=== PATIENT | female | born 1960 | race Caucasian/White ===

== ENCOUNTER 2023-06-08 18:34 | Inpatient (IN) | payer OTHER, SELFPAY ==
[2023-06-08] VITALS (8 sets, daily range): BP systolic 96–114; BP diastolic 58–73; BMI 20.6; BMI 19.8
[2023-06-08 15:22] LABS: COVID-19 Antigen Negative (Negative)
--- NOTE | 2023-06-08 15:58 | ED.GENMED ---
History of Present Illness
General
Chief Complaint: Fever
Source: patient
Exam Limitations: none
Time Seen by Provider: 06/08/23 15:31
Travel History
Have you had any contact with someone who has COVID-19?: Yes
Comment: fever
Do you have any symptoms of coronavirus? Fever > 100 degrees, chills, cough, shortness of breath, sore throat, loss of taste or smell, muscle aches, or headache?: Yes
Symptoms:: fever
History of Present Illness
History of Present Illness:
62-year-old female with recent diagnosis of microscopic colitis presents with persistent abdominal pain loose stools fever and fatigue. She notes a 15 pound weight loss over the past 4 months. She denies chest pain. She was seen at another ""hospital's emergency room several days ago was given fluids and discharged. She had a colonoscopy through [facility] on May 17 of this year which demonstrated the microscopic colitis. She has been prescribed budesonide, Bentyl
however despite these interventions her symptoms are worsening. Today she had a temperature of 103.3. She denies chest pain. She notes fatigue but no shortness of breath.
Past History
Past History
ED Past Medical History: COPD (Slight), NIDDM and Other (Migraines)
ED Past Surgical History: Other (Hemorrhoids)
Social History
Tobacco: Smoker
Alcohol: Occasional
Personal: Single
Living: alone
Phy Exam
Physical Exam
Physical Exam:
General: Slightly ill-appearing female no acute respiratory distress
HEENT: Normocephalic atraumatic
Heart: Regular rate and rhythm no murmurs
Lungs: Clear to auscultation bilaterally no wheezing
Abdomen: Soft mildly diffusely tender no guarding nondistended normal bowel sounds no costovertebral angle tenderness
Extremities: No cyanosis
Skin: Warm no rashes
Course
Orders/Labs/Results
Orders:
Orders
06/08/23 14:43
COVID-19 Antigen Urgent
Source: Nasal Swab
Influenza A+B Rapid Molecular Urgent
WILFRED Source: Nasal Swab
Specimen Description:
06/08/23 15:56
0.9% Sodium Chloride 1000 ml [Nss] 1,000 ml IV BOLUS
06/08/23 15:57
Acetaminophen [Tylenol] 650 mg PO NOW STA
06/08/23 16:00
Blood Culture Q30M
WILFRED Source: Blood/Venous
Specimen Description:
06/08/23 16:10
CRP [C-Reactive Protein] Urgent
Calprotectin, Fecal [S] Urgent
Date Specimen was Collected: 06/08/23
Time Specimen was Collected: 16:02
Comment: ADD ON
Complete Blood Count/With Diff Urgent
Comprehensive Metabolic Panel Urgent
Erythrocyte Sed Rate Urgent
Comment: ADD ON
Lactic Acid Q4H
Comment: CANCEL 2nd LACTIC ACID IF 1st LACTIC ACID IS LESS THAN 2
Lipase Urgent
Norovirus by PCR Urgent
WILFRED Source: Feces/Stool
Specimen Description:
Date Specimen was Collected: 06/08/23
Time Specimen was Collected: 16:02
Ova & Parasites Giardia/Crypto AG [Giardia/Cryptosporidium Ag] Urgent
WILFRED Source: Feces/Stool
Specimen Description:
Date Specimen was Collected: 06/08/23
Time Specimen was Collected: 16:02
STOOL [C difficile Antigen & Toxins] Urgent
WILFRED Source: Feces/Stool
Specimen Description:
Date Specimen was Collected: 06/08/23
Time Specimen was Collected: 16:02
Stool Culture Urgent
WILFRED Source: Feces/Stool
Specimen Description:
Date Specimen was Collected: 06/08/23
Time Specimen was Collected: 16:02
06/08/23 16:17
Calprotectin, Fecal [S] Urgent
06/08/23 16:18
Urinalysis Reflex To Culture Urgent
06/08/23 16:25
Add On- LAB Urgent
Tests Added?: sed rate
06/08/23 16:26
Add On- LAB Urgent
Tests Added?: calprotectin, fecal (s)
06/08/23 16:30
Blood Culture Q30M
WILFRED Source: Blood/Venous
Specimen Description:
Abnormal Lab Results
06/08/23
16:10
Absolute Neuts (auto) 7.7 H 10^3/uL
(1.4-6.5)
Absolute Lymphs (auto) 1.1 L 10^3/uL
(1.2-3.4)
Absolute Monos (auto) 1.2 H 10^3/uL
(0.1-0.6)
Neutrophils % 76.2 H %
(42.2-75.2)
Lymphocytes % 11.3 L %
(20.5-51.1)
Monocytes % 11.8 H %
(1.7-9.3)
Sodium 133 L mmol/L
(135-145)
Glucose 111 H mg/dl
(70-99)
C-Reactive Protein 24.50 H mg/L
(0.0-10.00)
06/08/23 16:10
06/08/23 16:10
Vital Signs
Initial and Last Documented VS:
Initial Vital Signs
Temp Pulse Resp BP Pulse Ox
100.8 F H 98 16 109/73 100
06/08/23 14:34 06/08/23 14:34 06/08/23 14:34 06/08/23 14:34 06/08/23 14:34
Last Documented Vital Signs
Temp Pulse Resp BP Pulse Ox
100.7 F H 98 16 109/73 100
06/08/23 15:56 06/08/23 14:34 06/08/23 14:34 06/08/23 14:34 06/08/23 14:34
MDM/Problems Addressed
Differential Diagnosis Includes:
Fever with abdominal pain and recent diagnosis of microscopic colitis. COVID and flu test were performed through triage which were negative. Will check labs including lactic acid and blood cultures. I reviewed the CT report from 3 nights ago
which demonstrated no acute finding. This was a CT scan of the abdomen pelvis with oral and IV contrast at [facility]. Consider flare of colitis. She has persistent fever. Blood cultures will be ordered. She is losing weight and dry
currently. Patient is failing outpatient treatment will likely benefit from admission to hospital
*Critical Care Note
Total Time (30-74mins, 75-104mins- exclusive of procedures): Not Applicable
Update Note
Update Note:
Labs reviewed. Discussed findings with GI. GI recommended further stool studies. Will hydrate. Will keep in hospital secondary to failure of outpatient treatment. GI to see in the morning. Hospitalist made aware
ED Attending Note
-
Portions of this chart may have been created with voice recognition software.� Occasional wrong word or��sound alike� substitutions may have occurred due to the inherent limitations of voice recognition software.
Discharge Plan
Departure
Patient Disposition: Admit
Date of Disposition: 06/08/23
Time of Disposition: 17:07
Admit to: Telemetry
Presentation/result/management discussed w/ accepting MD/DO: Hospitalist
Discharge Problem:
Fever
Prescriptions:
No Action
pantoprazole 40 MG tablet,delayed release (DR/EC)
40 mg PO DAILY Qty: 10 0RF
Referrals:
NONE,* [Family Provider] -
Interventions
Interventions:
*Risk Screen - Suicide Last Done: 06/08/23 14:34
*General Assessment Last Done: 06/08/23 15:30
*Neglect/Abuse Screening Last Done: 06/08/23 14:34
*ED COVID-19 Vaccine History Last Done: 06/08/23 15:30
ED- Neurological Assessment Last Done: 06/08/23 15:30
ED-Skin Assessment Last Done: 06/08/23 15:30
[2023-06-08] MEDS: TYLENOL 650 MG PO (16:04)
[2023-06-08] MEDS: NSS 1000 IV (16:18)
[2023-06-08 16:22] LABS: % Basophils 0.2 % (0-2); % Eosinophils 0.1 % (0-6); % Immature Granulocytes 0.4 % (0-0.5); % Lymphocytes 11.3 % (20.5-51.1); % Monocytes 11.8 % (1.7-9.3); % Neutrophils 76.2 % (42.2-75.2); Absolute Lymphocytes 1.1 10^3/uL (1.2-3.4); Absolute Monocytes 1.2 10^3/uL (0.1-0.6); Absolute Neutrophils 7.7 10^3/uL (1.4-6.5); Hematocrit 39.9 % (37.0-47.0); Hemoglobin 14.1 g/dL (12.0-16.0); Mean Corp Hgb Conc. 35.3 g/dL (33.0-37.0); Mean Corpuscular Hgb 30.2 pg (27.0-31.0); Mean Corpuscular Volume 85.4 fL (81.0-99.0); Mean Platelet Volume 8.8 fL (7.4-10.4); Nucleated Red Blood Cells % 0 %; Platelet Count 341 10^3/uL (130-400); Red Blood Cell Count 4.67 10^6/uL (4.20-5.40); Red Cell Dist. Width 12.6 % (11.5-14.5)
[2023-06-08 16:36] LABS: Lactic Acid 1.3 mmol/L (0.7-2.0)
[2023-06-08 16:38] LABS: ALT (SGPT) 14 U/L (0-35); AST (SGOT) 24 U/L (14-36); Albumin 3.7 g/dl (3.5-5.0); Alkaline Phosphatase 73 U/L (38-126); Blood Urea Nitrogen 9 mg/dl (7-17); Calcium 8.8 mg/dl (8.4-10.2); Carbon Dioxide 23 mmol/L (22-30); Chloride 103 mmol/L (98-107); Estimated Creatinine Clearance 61 ml/min; Glucose 111 mg/dl (70-99); Lipase 169 U/L (23-300); Potassium 3.6 mmol/L (3.5-5.1); Sodium 133 mmol/L (135-145); Total Bilirubin 0.4 mg/dl (0.2-1.3); Total Protein 6.5 g/dl (6.3-8.2); eGFR > 60.00
[2023-06-08 17:12] LABS: Erythrocyte Sed Rate 25 mm/hour (0-20)
--- NOTE | 2023-06-08 17:45 | HPS.HSE ---
Addendum entered and electronically signed by Marielos Sainz MD 06/08/23 18:00:
I saw and examined the patient.
The LIGHT RAIL SIGNAL TECHNICIAN's note was reviewed and I agree with the note.
Comment:
62-year-old female, recently diagnosed with microscopic colitis and started with budesonide and as needed Bentyl, ?resolved diabetes mellitus; presented with fever, persistent abdominal pain with chronic diarrhea.
She had a colonoscopy at [facility] earlier this month with biopsy that showed microscopic colitis. She reported weight loss of 15lbs over the past 6 months.�
A/P:
# Fever / Abdominal Pain / Diarrhea, possibly infectious colitis vs acute flare of IBD
Attempt to obtain records of recent CT scan and colonoscopy
Consult GI
Check blood cultures and stool studies
Start empiric Zosyn
Continue budesonide
# ?Resolved Diabetes Mellitus, Type II
Per patient, she no longer requires meds following weight loss
Monitor sugars and continue coverage insulin
Check A1C
# Anxiety/Depression
Continue Lexapro and Ativan prn as prior to admission
# Pulmonary Nodules
Patient will need follow-up with pulmonary as outpatient
# Tobacco Use Disorder
Encourage smoking cessation
Continue nicotine patch
DVT proph: SCDs
Code Status: Full Code
Original Note:
Family Physician
-
Family Physician: * NONE
Chief Complaint
-
Abdominal Pain, Diarrhea and Fever
History of Present Illness
Patient is a 62 y/o female past medical history of diabetes mellitus who presents with fever, diarrhea and abdominal pain. She admits to abdominal pain and diarrhea for the past two months. She had a colonoscopy at [facility] earlier this month. Biopsy
showed evidence of microscopic colitis and she was started on budesonide earlier this week. Patient states during this time she has been experiencing low grades around 99-100F, but today had a fever of 103F which prompted her to come to the
emergency department for evaluation. She reports about 6-8 episodes of non-bloody diarrhea per day. She reports weight loss of 15lbs over the past 6 months. She denies nausea or vomiting.
Medical History
Past Medical History
Past Medical History: Reports Other
Additional Past Medical History:
Diabetes Mellitus, Type II
Anxiety/Depression
Past Surgical History: Reports None
Social History
Tobacco: Smoker (1/2 ppd)
Alcohol: None
Family History
Family History: Not pertinent
Allergies / Home Medications
Allergies reflects when Allergies were last updated in [employer].
Home Medications with original date entered in [facility]
Allergy/Medication List:
Allergies
Allergy/AdvReac Type Severity Reaction Status Date / Time
NKA - No Known Allergies Allergy Unknown Uncoded 11/16/19 12:34
Home Medications
acetaminophen 325 mg tablet (Tylenol) 650 mg PO Q6HPRN PRN mild pain 06/08/23
budesonide 3 mg capsule,delayed,extended release 9 mg PO DAILY 06/08/23
dicyclomine 20 mg tablet 20 mg PO TIDPRN PRN spasms 06/08/23
escitalopram oxalate 10 mg tablet (Lexapro) 10 mg PO QPM 06/08/23
lorazepam 1 mg tablet 1 mg PO HSPRN PRN anxiety 06/08/23
Review of Systems
-
A 12 point ROS was completed and negative except as noted: Yes
Constitutional: Reports Fever
Respiratory: Denies Cough or Trouble Breathing
Cardiac: Denies Chest Pain or Palpitations
Abdomen/GI: Reports See HPI
Physical Exam
Vital Signs
Vital Signs
Temp Pulse Resp BP Pulse Ox
100.7 F H 91 24 107/71 93
06/08/23 15:56 06/08/23 17:00 06/08/23 17:00 06/08/23 17:00 06/08/23 17:00
Physical Exam
General: Comfortable and Conversant
HEENT: Anicteric and Moist mucous membranes
Respiratory: Clear and Non Labored Respirations
Cardiac: S1/S2 and Regular Rhythm; No Tachycardia
GI: Soft, Tender (Mild throughout without rebound or guarding) and Other (Hyperactive bowel sounds throughout)
Rectal: Deferred by Provider
Musculoskeletal: No Clubbing, No Cyanosis and No Edema
Skin: Warm and Dry
Neuro: Awake, Alert, Oriented and Nonfocal/grossly intact
Psych: Calm
Laboratory Results
-
06/08/23 16:10
06/08/23 16:10
Laboratory Results
Lactic Acid Cancelled 06/08/23 20:00
Total Bilirubin 0.4 mg/dl (0.2-1.3) 06/08/23 16:10
AST 24 U/L (14-36) 06/08/23 16:10
ALT 14 U/L (0-35) 06/08/23 16:10
Alkaline Phosphatase 73 U/L (38-126) 06/08/23 16:10
Lipase 169 U/L (23-300) 06/08/23 16:10
Data Reviewed
-
Lab Data: Labs Reviewed by me
Old Records: Requested
Impression/Plan
-
Fever / Abdominal Pain / Diarrhea, possibly infectious colitis vs acute flare of IBD
-Attempt to obtain records of recent CT scan and colonoscopy
-Consult GI
-Check blood cultures and stool studies
-Start empiric Zosyn
-Continue budesonide
Diabetes Mellitus, Type II
-Patient no longer requires meds following weight loss
-Monitor sugars and continue coverage insulin
Anxiety/Depression
-Continue Lexapro and Ativan prn as prior to admission
Pulmonary Nodules
-Patient will need follow-up with pulmonary as outpatient
Tobacco Use Disorder
-Encourage smoking cessation
-Continue nicotine patch
DVT proph: SCDs
Code Status: Full Code
[2023-06-08] MEDS: ZOSYN 50 IV (18:07)
[2023-06-08] MEDS: KCL 1005 MEQ IV (18:18)
[2023-06-08] MEDS: LEXAPRO 10 MG PO (21:03)
[2023-06-08] MEDS: BENTYL 20 MG PO (21:06)
[2023-06-08 23:20] LABS: Glucose - Point of Care 106 mg/dl (70-99)
[2023-06-08] MEDS: ZOFRAN 4 MG IV (23:36)
[2023-06-08] MEDS: TYLENOL/FEVERALL 650 MG RECTAL (23:52)
[2023-06-09] MEDS: ZOSYN 50 IV ×5 (00:32→23:15)
[2023-06-09] MEDS: OFIRMEV 100 IV (03:59)
[2023-06-09] MEDS: KCL 1005 MEQ IV ×3 (04:39→23:15)
--- NOTE | 2023-06-09 05:25 | W.PN.UPDATE ---
Update Note
Progress Note Update
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 At 0215, continued to be 102.5 (orally) rectally 103, likely due to poor Rectal Tylenol absorption. Cooling blanket ordered, 126/75 82 bpm 99% on RA, Also ordered
IV Ofirmev, discussed with Pharmacist.
at 0600 Temp of 100.0 noted. Patient is stable at present. Micro Blood culture and stool culture still pending. On Zosyn and Budesonide.
[2023-06-09 05:37] VITALS: BP 126/75
[2023-06-09 05:55] LABS: Glucose - Point of Care 102 mg/dl (70-99)
[2023-06-09 07:00] VITALS: BP 96/69
[2023-06-09 07:06] LABS: Hematocrit 36.3 % (37.0-47.0); Hemoglobin 12.5 g/dL (12.0-16.0); Mean Corp Hgb Conc. 34.4 g/dL (33.0-37.0); Mean Corpuscular Hgb 30.1 pg (27.0-31.0); Mean Corpuscular Volume 87.5 fL (81.0-99.0); Mean Platelet Volume 9.2 fL (7.4-10.4); Platelet Count 283 10^3/uL (130-400); Red Blood Cell Count 4.15 10^6/uL (4.20-5.40); Red Cell Dist. Width 12.6 % (11.5-14.5); White Blood Cell Count 9.6 10^3/uL (4.8-10.8)
[2023-06-09 07:38] LABS: Blood Urea Nitrogen 8 mg/dl (7-17); Calcium 8.2 mg/dl (8.4-10.2); Carbon Dioxide 25 mmol/L (22-30); Chloride 101 mmol/L (98-107); Estimated Creatinine Clearance 59 ml/min; Glucose 120 mg/dl (70-99); Magnesium 1.9 mg/dl (1.6-2.3); Potassium 3.5 mmol/L (3.5-5.1); Sodium 135 mmol/L (135-145); eGFR > 60.00
[2023-06-09] MEDS: ENTOCORT EC 9 MG PO (08:55)
[2023-06-09 09:04] LABS: Glycohemoglobin (HgbA1c) 6.2 % (4.0-5.6)
[2023-06-09 11:20] VITALS: BMI 19.4
[2023-06-09 12:12] LABS: Glucose - Point of Care 117 mg/dl (70-99)
--- NOTE | 2023-06-09 12:40 | CON.GI ---
Consultation
-
Date/Time Consultation Requested: 06/08/2023
Date/Time Consultation Performed: 06/09/2023
Requesting Provider: ER
Performing Provider: Dr. Henriquez
Reason for Consultation: Fever diarrhea abdominal pain
Medical History
Chief Complaint / HPI
Chief Complaint: Fever, diarrhea and abdominal pain
History of Present Illness:
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
budesonide 4 days ago and 15 pound weight loss since modifying her diet since the diarrhea started.
Patient states her symptoms started in November when she went from having normal bowel movements to having a few soft stools which later turned more loose than in end of April that became watery and she was moving up to 10 times a day even nocturnal
symptoms. Even had accidents in stores. Describes it as painless but urgent and worse after eating. Because it would be worse after eating she would not eat much and stuck to very plain foods. She is lost 15 pounds in the last few months. Prior
to all this happening she was traveling to [facility], a [facility]. No one around her has anything similar. She did change around some antidepressants and recently started taking Lexapro. She is still a smoker.
She had a colonoscopy with Dr. Alfred on 05/23/2023 where she had a normal colon but biopsies were positive for microscopic colitis. She was not aware of this until just last week. She ended up in the emergency room on 06/05/2023 because of her
fever and watery diarrhea where she had a CT scan with IV and oral contrast. I reviewed the report which was normal. At that time they called her GI doctor who then prescribed the budesonide. She has not been taking any Imodium because of fear of
her hemorrhoids from the past. She was taking Pepto-Bismol which did note some improvement in the stools. She is not on any PPIs and does not take any significant NSAIDs.
Past Medical History
Past Medical History: Other (Type 2 diabetes, off medications because of weight loss, anxiety depression, tobacco abuse with mild COPD, migraines)
Social History
Tobacco: Smoker
Alcohol: Occasional
Personal: Single
Living: Alone
Family History
Family History: Other (Denies any GI illnesses. No celiac or inflammatory bowel disease)
Allergies / Home Medications
Allergy/AdvReac Type Severity Reaction Status Date / Time
NKA - No Known Allergies Allergy Unknown Uncoded 11/16/19 12:34
Medication Instructions Recorded
acetaminophen 325 mg tablet 650 mg PO Q6HPRN PRN mild pain 06/08/23
(Tylenol)
budesonide 3 mg 9 mg PO DAILY INFLAMMATION 06/08/23
capsule,delayed,extended release
dicyclomine 20 mg tablet 20 mg PO TIDPRN PRN spasms 06/08/23
escitalopram oxalate 10 mg tablet 10 mg PO QPM Mental Health/Anxiety 06/08/23
(Lexapro)
lorazepam 1 mg tablet 1 mg PO HSPRN PRN anxiety 06/08/23
Review of Systems
-
History Source: Patient
All other systems: A 12 pt ROS was Negative except as stated above in HPI
Vital Signs
Temp Pulse Resp BP Pulse Ox
98.1 F 77 20 96/69 100
06/09/23 07:00 06/09/23 07:00 06/09/23 07:00 06/09/23 07:00 06/09/23 07:00
Physical Exam
Exam
General: Well Developed, Well Nourished and No Apparent Distress
HEENT: Anicteric
Respiratory: Clear
Cardiac: S1/S2
GI: Soft, Non Tender and Non Distended
Neuro: AO x 3
Psych: Calm
Results
WBC 9.6 10^3/uL (4.8-10.8) 06/09/23 06:31
Hgb 12.5 g/dL (12.0-16.0) 06/09/23 06:31
Hct 36.3 % (37.0-47.0) L 06/09/23 06:31
MCV 87.5 fL (81.0-99.0) 06/09/23 06:31
Plt Count 283 10^3/uL (130-400) 06/09/23 06:31
Absolute Neuts (auto) 7.7 10^3/uL (1.4-6.5) H 06/08/23 16:10
Sodium 135 mmol/L (135-145) 06/09/23 06:31
Potassium 3.5 mmol/L (3.5-5.1) 06/09/23 06:31
Chloride 101 mmol/L (98-107) 06/09/23 06:31
Carbon Dioxide 25 mmol/L (22-30) 06/09/23 06:31
BUN 8 mg/dl (7-17) 06/09/23 06:31
Creatinine 0.9 mg/dL (0.6-1.0) 06/09/23 06:31
Calcium 8.2 mg/dl (8.4-10.2) L 06/09/23 06:31
Total Bilirubin 0.4 mg/dl (0.2-1.3) 06/08/23 16:10
AST 24 U/L (14-36) 06/08/23 16:10
ALT 14 U/L (0-35) 06/08/23 16:10
Alkaline Phosphatase 73 U/L (38-126) 06/08/23 16:10
Lipase 169 U/L (23-300) 06/08/23 16:10
Diagnostic Image Results:
Prior GI Procedures:
EGD:
Colonoscopy: 05/23/[address] Alfred on 05/23/2023 where she had a normal colon but biopsies were positive for microscopic colitis -I reviewed the report. I do not have the path report but she states it was collagenous colitis
Assessment / Plan
-
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
colitis who started budesonide 4 days ago and 15 pound weight loss since modifying her diet since the diarrhea started.
# Diarrhea -watery, frequent and urgent without significant abdominal pain
--- Consistent with microscopic colitis as diagnosed on 05/23/2023 during her colonoscopy. Patient was not aware of that diagnosis until last week and was started on budesonide 9 mg and continue
--- Okay to use Imodium and Pepto-Bismol in the setting of collagenous colitis - i'll start imodium
-- can also use bile acid binder if needed
--Patient has to stop smoking as this is often not controllable with continued tobacco use
--,--- microscopic colitis doesn't cause fever or abdominal pain - only diarrhea
--- Stool studies so far negative for C. difficile, norovirus, Cryptosporidium and Giardia. Stool culture pending, blood cultures pending, fecal leukocytes pending, elevated CRP
# Weight loss -patient has a good appetite but she is nervous about eating because of the diarrhea
# Fever -patient states it has been 99-100 for over a month but more recently went to 103 yesterday
--- She has no signs of infection denies any cough, pain, urinary symptoms, rash
--- Microscopic colitis does not cause fever and she has no signs of inflammatory bowel disease on imaging or exam
--- Patient was told by her PCP to see hematology/oncology for FUO
-- discussed with DR Sainz
Data Reviewed
-
CT Scan: Report Reviewed by me
Old Records: Reviewed
Time spent with patient (in minutes): 50
-
-
Thank you for consultation and allowing me to participate in the patient's care. Please call the flight controls engineer GI physician during the after hours with any questions or concerns.
--- NOTE | 2023-06-09 13:10 | W.PN.HOSP.TC ---
Today's Communication/Plan
-
see AP
Assessment / Plan
Assessment / Plan
62-year-old female, recently diagnosed with microscopic colitis and started with budesonide and as needed Bentyl, ?resolved diabetes mellitus; presented with fever, persistent abdominal pain with chronic diarrhea.
She had a colonoscopy at [facility] earlier this month with biopsy that showed microscopic colitis. She reported weight loss of 15lbs over the past 6 months.�
A/P:
# Fever / Abdominal Pain / Diarrhea, possibly infectious colitis vs acute flare of IBD
Attempt to obtain records of recent CT scan and colonoscopy
Consult GI
Check blood cultures and stool studies
Cont empiric Zosyn
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
# ?Resolved Diabetes Mellitus Type II
Per patient, she no longer requires meds following weight loss
A1C 6.2%
# Anxiety/Depression
Continue Lexapro and Ativan prn as prior to admission
# Pulmonary Nodules
Patient will need follow-up with pulmonary as outpatient
# Tobacco Use Disorder
Encourage smoking cessation
Continue nicotine patch
DVT proph: SCDs
Code Status: Full Code
Anticipated Discharge: 24 - 48 hours
Subjective/Interval History
-
Date of Service: June 09, 2023
Objective Data
-
Labs:
Laboratory Results
06/09/23
06:31
WBC 9.6
Hgb 12.5
Hct 36.3 L
Plt Count 283
Sodium 135
Potassium 3.5
Chloride 101
Carbon Dioxide 25
BUN 8
Creatinine 0.9
Glucose 120 H
Calcium 8.2 L
Vital Signs:
Vital Signs
Temp Pulse Resp BP Pulse Ox
36.7 C 77 20 96/69 100
06/09/23 07:00 06/09/23 07:00 06/09/23 07:00 06/09/23 07:00 06/09/23 07:00
Review of Systems
-
Abdomen/GI: Reports Abdominal Pain and Diarrhea
Physical Exam
-
General: Well Developed, Well Nourished, No Apparent Distress, Comfortable and Conversant; Negative Respiratory Distress
HEENT: Normocephalic, Atraumatic, Nose Appears Normal and Ears Appear Normal; Negative Oxygen
Respiratory: Clear to Auscultation and Non Labored Respirations; Negative Accessory Resp Muscle Use
Cardiac: Regular Rhythm and S1/S2
GI: Soft, Nontender, Nondistended and Normal Bowel Sounds
Skin: Warm and Dry
Neuro: Awake, Alert, Oriented, AO x 3 and Nonfocal/Grossly Intact
Psych: Calm and Intact Judgement/Insight
Data Reviewed
-
Labs: Labs Reviewed by me
[2023-06-09 15:00] VITALS: BP 105/63
[2023-06-09] MEDS: IMODIUM 2 MG PO ×2 (15:08→19:30)
[2023-06-09 15:33] VITALS: BMI 19.4
[2023-06-09] MEDS: LEXAPRO 10 MG PO (17:25)
[2023-06-09 17:37] LABS: Glucose - Point of Care 158 mg/dl (70-99)
[2023-06-10 00:10] LABS: Glucose - Point of Care 85 mg/dl (70-99)
[2023-06-10 00:24] VITALS: BP 108/69
[2023-06-10] MEDS: ZOSYN 50 IV (05:02)
[2023-06-10 05:59] LABS: % Basophils 0.5 % (0-2); % Eosinophils 0.2 % (0-6); % Immature Granulocytes 0.3 % (0-0.5); Absolute Lymphocytes 1.9 10^3/uL (1.2-3.4); Absolute Monocytes 0.9 10^3/uL (0.1-0.6); Absolute Neutrophils 3.3 10^3/uL (1.4-6.5); Hematocrit 32.9 % (37.0-47.0); Hemoglobin 11.4 g/dL (12.0-16.0); Mean Corp Hgb Conc. 34.7 g/dL (33.0-37.0); Mean Corpuscular Hgb 29.7 pg (27.0-31.0); Mean Corpuscular Volume 85.7 fL (81.0-99.0); Mean Platelet Volume 9.3 fL (7.4-10.4); Nucleated Red Blood Cells % 0 %; Platelet Count 249 10^3/uL (130-400); Red Blood Cell Count 3.84 10^6/uL (4.20-5.40); Red Cell Dist. Width 12.8 % (11.5-14.5); White Blood Cell Count 6.1 10^3/uL (4.8-10.8)
[2023-06-10 06:00] VITALS: BMI 19.6
[2023-06-10 06:28] LABS: Blood Urea Nitrogen 6 mg/dl (7-17); Calcium 7.9 mg/dl (8.4-10.2); Carbon Dioxide 25 mmol/L (22-30); Chloride 105 mmol/L (98-107); Estimated Creatinine Clearance 65 ml/min; Glucose 92 mg/dl (70-99); Potassium 3.4 mmol/L (3.5-5.1); Sodium 133 mmol/L (135-145); eGFR > 60.00
[2023-06-10 07:00] VITALS: BP 95/69
[2023-06-10] MEDS: ENTOCORT EC 9 MG PO (07:13)
[2023-06-10] MEDS: IMODIUM 2 MG PO ×4 (07:19→23:40)
[2023-06-10] MEDS: KCL 40 MEQ PO (07:19)
--- NOTE | 2023-06-10 07:54 | CON.ONC ---
Impression
Impression
Fever
Unintentional weight loss
hx pulmonary nodules
Ovarian cyst
Diarrhea with microscopic colitis on colonoscopy
COPD
Anxiety/depression
Plan
Plan
Diagnostic CT chest with plan for PET scan as outpt.
Eval for carcinoid syndrome as possible source of diarrhea: serum chromogranin, 24-hr urine for 5-HIAA.
CBC unremarkable other than elevated WBC.
No evidence of maligancy on exam, scans, CBC.
Consider infectious disease consultation if not already done.
Thank you for consult, will follow along with you.
Patient History
History of Present Illness
62-year-old woman with history of COPD, anxiety/depression and family history of lung cancer in sister. She has pulmonary nodules which have been followed by annual low-dose screening CT scan. Over the last 6 months or so, she has been feeling ill
with daily diarrhea, sometimes explosive, sporadic abdominal pain and unintentional weight loss of about 15 pounds. She has been primarily managed at [facility] but has been frustrated about lack of progress in determining a diagnosis.
Workup for the diarrhea so far has included stool cultures which were negative for Salmonella, Shigella, Campylobacter, E. coli Shiga toxin, and C. difficile. Stool for O&P was similarly negative. A few of these tests are still pending. She
underwent a CT of the abdomen and pelvis at [place] on June 05 that showed a 4 mm nodule in right lower lobe, 2.6 cm left ovarian cyst, otherwise no evidence of acute intra-abdominal or pelvic pathology. She went on to colonoscopy which
showed microscopic colitis. She has also been having fevers. We are consulted regarding the weight loss and FUO.
Past-Medical/Surgical History
Past Medical History
Past Medical History: Other (Type 2 diabetes, off medications because of weight loss, anxiety depression, tobacco abuse with mild COPD, migraines)
Social History
Tobacco: Smoker
Alcohol: Occasional
Personal: Single
Living: Alone
Family History
Sister: lung cancer,
Other: liver cancer
Patient Medication
Medication Instructions Recorded Confirmed Last Taken Type
acetaminophen 325 mg tablet 650 mg PO Q6HPRN PRN mild pain 06/08/23 06/08/23 06/08/23 History
(Tylenol)
budesonide 3 mg 9 mg PO DAILY INFLAMMATION 06/08/23 06/08/23 06/08/23 History
capsule,delayed,extended release
dicyclomine 20 mg tablet 20 mg PO TIDPRN PRN spasms 06/08/23 06/08/23 Unknown History
escitalopram oxalate 10 mg tablet 10 mg PO QPM Mental Health/Anxiety 06/08/23 06/08/23 06/07/23 History
(Lexapro)
lorazepam 1 mg tablet 1 mg PO HSPRN PRN anxiety 06/08/23 06/08/23 Unknown History
Active Medications
Generic Name Dose Route Start Last Admin
Trade Name Freq PRN Reason Stop Dose Admin
Acetaminophen 650 mg 06/08/23 23:24
Acetaminophen 325 Mg Tablet PO 07/06/23 19:59
Q6HPRN PRN
mild pain/ fever > 100.4
Budesonide 9 mg 06/09/23 08:00 06/10/23 07:13
Budesonide 3 Mg Capsule PO 07/07/23 07:59 9 mg
DAILY DAYANNA Administration
Dextrose 12.5 grams 06/08/23 20:00
Dextrose 50% (0.5 Grams/Ml) 50 Ml Syringe IV 07/06/23 19:59
[id number] PRN
hypoglycemia
Protocol
Escitalopram Oxalate 10 mg 06/08/23 20:00 06/09/23 17:25
Escitalopram 10 Mg Tablet PO 07/06/23 19:59 10 mg
QPM DAYANNA Administration
Glucagon 1 mg 06/08/23 20:00
Glucagon 1 Mg Vial IM 07/06/23 19:59
PRN PRN
hypoglycemia
Protocol
Piperacillin Sod/Tazobactam Sod 3.375 gram in 50 mls @ 100 mls/hr 06/09/23 00:00 06/10/23 05:02
Zosyn IV 50 mls
Q6H DAYANNA Administration
Insulin Aspart 0 units 06/09/23 07:30 06/09/23 17:36
Insulin Aspart Low Resistance 300 Units/3 Ml Pen.Injctr SC 07/07/23 07:29 Not Given
AC DAYANNA
Protocol
Loperamide HCl 2 mg 06/09/23 14:49 06/10/23 07:19
Loperamide 2 Mg Capsule PO 07/07/23 14:48 2 mg
Q4HPRN PRN Administration
diarrhea
Lorazepam 1 mg 06/08/23 20:00
Lorazepam 1 Mg Tablet PO 07/06/23 19:59
HSPRN PRN
anxiety
Nicotine 7 mg 06/09/23 08:00 06/10/23 07:14
Nicotine 7 Mg Patch TRANSDERM 07/07/23 07:59 Not Given
DAILY DAYANNA
Ondansetron HCl 4 mg 06/08/23 20:00 06/08/23 23:36
Ondansetron 4 Mg/2 Ml Vial IV 07/06/23 19:59 4 mg
Q6HPRN PRN Administration
NAUSEA/VOMITING
Sodium Chloride 0 flush 06/08/23 20:00
Sodium Chloride 0.9% (Flush) Syringe IV 07/06/23 19:59
PER PROTOCOL DAYANNA
Review of Systems
-
History Source: Patient
All Other Systems: Reviewed and Negative
Constitutional: Reports Weight Loss
Physical Exam
-
General: Well Developed and Well Nourished
HEENT: Moist Mucous Membranes; Negative Jaundice
Cardiology: Normal Sinus Rhythm, S1 and S2
Pulmonary: Clear; Negative Wheezes
GI: Soft and Normal Bowel Sounds (hyperactive bowel sounds)
Musculoskeletal: No Clubbing, No Cyanosis and No Edema
Extremities: No C/C/E
Neurology: Non Focal and No Lateralizing Symptoms
Skin: Warm and Dry
Hematologic / Lymphatic: No Lymphadenopathy
Psych: Calm and Intact Judgement/Insight
Labs
Lab Results
WBC 6.1 10^3/uL (4.8-10.8) 06/10/23 05:24
RBC 3.84 10^6/uL (4.20-5.40) L 06/10/23 05:24
Hgb 11.4 g/dL (12.0-16.0) L 06/10/23 05:24
Hct 32.9 % (37.0-47.0) L 06/10/23 05:24
MCV 85.7 fL (81.0-99.0) 06/10/23 05:24
MCH 29.7 pg (27.0-31.0) 06/10/23 05:24
MCHC 34.7 g/dL (33.0-37.0) 06/10/23 05:24
RDW 12.8 % (11.5-14.5) 06/10/23 05:24
Plt Count 249 10^3/uL (130-400) 06/10/23 05:24
MPV 9.3 fL (7.4-10.4) 06/10/23 05:24
Abs Immat Gran (auto) 0.0 10^3/uL (0-0.05) 06/10/23 05:24
Absolute Neuts (auto) 3.3 10^3/uL (1.4-6.5) 06/10/23 05:24
Absolute Lymphs (auto) 1.9 10^3/uL (1.2-3.4) 06/10/23 05:24
Absolute Monos (auto) 0.9 10^3/uL (0.1-0.6) H 06/10/23 05:24
Absolute Eos (auto) 0.0 10^3/uL (0-0.7) 06/10/23 05:24
Absolute Basos (auto) 0.0 10^3/uL (0-0.2) 06/10/23 05:24
Immature Gran % 0.3 % (0-0.5) 06/10/23 05:24
Neutrophils % 54.0 % (42.2-75.2) 06/10/23 05:
Lymphocytes % 31.0 % (20.5-51.1) 06/10/23 05:24
Monocytes % 14.0 % (1.7-9.3) H 06/10/23 05:24
Eosinophils % 0.2 % (0-6) 06/10/23 05:24
Basophils % 0.5 % (0-2) 06/10/23 05:24
Creatinine 0.8 mg/dL (0.6-1.0) 06/10/23 05:24
04/25/2023: WBC 14.4, Hgb 14.1, PLT 272, ANC 9900
05/20/2023: WBC 8.4, Hgb 13.7, PLT 317
Vital Signs
Vital Signs
Temp Pulse Resp BP Pulse Ox
99.9 F 82 18 108/69 99
06/10/23 00:24 06/10/23 00:24 06/10/23 00:24 06/10/23 00:24 06/10/23 00:24
[2023-06-10 07:59] LABS: Magnesium 1.9 mg/dl (1.6-2.3)
[2023-06-10 08:21] LABS: Glucose - Point of Care 100 mg/dl (70-99)
[2023-06-10 08:56] LABS: Urine Albumin Negative (Neg - Trace); Urine Bilirubin Negative (Negative); Urine Character Clear (Clear); Urine Color Yellow; Urine Glucose Negative (Negative); Urine Ketone Negative (Negative); Urine Leukocyte Negative (Negative); Urine Nitrite Negative (Negative); Urine Occult Blood Negative (Negative); Urine Urobilinogen Negative (Neg - 1+)
--- NOTE | 2023-06-10 10:23 | W.PN.HOSP.TC ---
Today's Communication/Plan
-
see A/P
Assessment / Plan
Assessment / Plan
62-year-old female, recently diagnosed with microscopic colitis and started with budesonide and as needed Bentyl, ?resolved diabetes mellitus; presented with fever, persistent abdominal pain with chronic diarrhea.
She had a colonoscopy at [facility] earlier this month with biopsy that showed microscopic colitis. She reported weight loss of 15lbs over the past 6 months.�
A/P:
# Fever, unknown origin
recent outpt CT unrevealing
C diff/Norovirus/ stool Cryptosporidium/Giardia negative
Follow stool Cx
Blood culture negative
Cont empiric Zosyn
Appreciate heme input, diagnostic CT chest noted multiple old small pulmonary nodules, check PET scan outpt. Eval for carcinoid syndrome as possible source of diarrhea: serum chromogranin, 24-hr urine for 5-HIAA.
ID CS
# Abdominal Pain / severe persistent diarrhea, due to acute flare of IBD
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
C diff/Norovirus/ stool Cryptosporidium/Giardia negative
Follow stool Cx
GI on board
# Hypokalemia due to diarrhea
replete K
Mag WNL
# Resolved Diabetes Mellitus Type II
Per patient, she no longer requires meds following weight loss
A1C 6.2%
# Anxiety/Depression
Continue Lexapro and Ativan prn as prior to admission
# Pulmonary Nodules
diagnostic CT chest noted multiple old small pulmonary nodules
Follow-up with pulmonary as outpatient
# Tobacco Use Disorder
Encourage smoking cessation
Continue nicotine patch
DVT proph: SCDs
Code Status: Full Code
Anticipated Discharge: 24 - 48 hours
Subjective/Interval History
-
Date of Service: June 10, 2023
Objective Data
-
Labs:
Laboratory Results
06/10/23
05:24
WBC 6.1
Hgb 11.4 L
Hct 32.9 L
Plt Count 249
Sodium 133 L
Potassium 3.4 L
Chloride 105
Carbon Dioxide 25
BUN 6 L
Creatinine 0.8
Glucose 92
Calcium 7.9 L
Vital Signs:
Vital Signs
Temp Pulse Resp BP Pulse Ox
37.1 C 78 16 95/69 98
06/10/23 07:00 06/10/23 07:00 06/10/23 07:00 06/10/23 07:00 06/10/23 07:00
I&O
06/09/23 06/10/23 06/11/23
06:59 06:59 06:59
Intake Total 2189
Balance 2189
Review of Systems
-
Abdomen/GI: Reports Diarrhea
Physical Exam
-
General: Well Developed, Well Nourished, No Apparent Distress, Comfortable and Conversant; Negative Respiratory Distress
HEENT: Normocephalic, Atraumatic, Nose Appears Normal and Ears Appear Normal; Negative Oxygen
Respiratory: Clear to Auscultation and Non Labored Respirations; Negative Accessory Resp Muscle Use
Cardiac: Regular Rhythm and S1/S2
GI: Soft, Nontender, Nondistended and Normal Bowel Sounds
Skin: Warm and Dry
Neuro: Awake, Alert, Oriented and AO x 3
Psych: Calm and Intact Judgement/Insight
Data Reviewed
-
Labs: Labs Reviewed by me
--- NOTE | 2023-06-10 10:36 | CON.ID ---
Consultation
-
Date/Time Consultation Requested: June 09, 2023, 1438
Date/Time Consultation Performed: June 10 2023, 1035
Requesting Provider: Dr. Marielos Sainz
Performing Provider: Dr. Svetlana Burleson
Reason for Consultation: fever, colitis
Chief Complaint / Past History
Chief Complaint
Fever and persistent diarrhea
History of Present Illness
62 year old female with anxiety/depression who presented to the ED on 06/08 with high fevers. She has chronic diarrhea since November 2022. Initially diarrhea was not bad - was loose. In April 2023, diarrhea became watery about 6 to 8 times a day. No
abd pain. No N/V. Stool non-bloody. Had low grade temps 99-100. + 15 pound weight loss. Work-up included stool cultures and O+P which were negative. No abx for the diarrhea. She was referred to GI at [facility]. She underwent colonoscopy 05/23/23. On
06/05 she presented to [facility] ED due to new onset high fever. CT a/p showed no acute abdominal pathology, + right lung nodules, + ovarian cyst. 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 Her fever
persisted and she presented to . She was febrile up to 103.5. She is currently on Zosyn. No change in BM. + cough started [facility] hospital stay. She reports travel to [facility] in May, September, February, March 2003 to visit a friend
who has a home there. Ate raw sushi and restaurant foods. Boiled water and drank filtered water. She did have ice cubes once. Swam in the ocean twice. No animal exposure. No ticks/insect exposure. No ill-contacts. No known TB exposure. Recent 2
step PPD negative.
Past History
Additional Past Medical History:
Diet-controlled DM
microscopic colitis
Anxiety/depression
pulm nodules
COPD
Allergy History:
NKA - No Known Allergies Allergy (Uncoded 11/16/19 12:34)
Unknown
Medications Reviewed: Yes
Current Antibiotics:
Zosyn d3
Social History
Tobacco: Smoker (1/2 ppd)
Alcohol: Occasional
Drug: None
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
Family History
Family History: Not Pertinent
Review of Systems
Review of Systems
General: Fever, Chills and Change in Appetite
HEENT: Negative Lymphadenopathy, Sinus Problems, Headache or Pharyngitis
Cardiovascular: Negative Edema
Respiratory: Cough; Negative Sputum Production
Gasteroenterology: Weight Loss; Negative Nausea or Vomiting
Genital / Urological: Negative Dysuria
Endocrine: Weakness
Musculoskeletal: Arthralgias (with fevers)
Skin / Hair / Nails: Negative Rash
Neurological: Negative Headache or Dizziness
All systems: All other systems were reviewed and were negative
Vital Signs
Temp Pulse Resp BP Pulse Ox
98.8 F 78 16 95/69 98
06/10/23 07:00 06/10/23 07:00 06/10/23 07:00 06/10/23 07:00 06/10/23 07:00
Selected Entries
06/09/23
03:27 06/09/23
04:00
Temp 103.5 F H 103.4 F H
Physical Exam
Physical Exam
Constitutional: No Acute Distress and Comfortable
Eyes: No Conjunctival Hemorrhage and Sclera Anicteric
Pharynx: Benign
Cardiovascular: Regular Rate and S1/S2
Pulmonary: Clear
Gastrointestinal: Soft, Non Tender, Non Distended and Normal Bowel Sounds
Genito-Urinary: Negative CVA Tenderness
Extremities: Negative Edema
Musculoskeletal: Negative Joint Swelling, Joint Effusion or Spinal Tenderness
Skin: Negative Rash
Neurological: AO x 3
Lab / Diagnostic Study Results
06/10/23 05:24
02/26/24 05:24
Abs Immat Gran (auto) 0.0 10^3/uL (0-0.05) 06/10/23 05:24
Absolute Neuts (auto) 3.3 10^3/uL (1.4-6.5) 06/10/23 05:24
Absolute Lymphs (auto) 1.9 10^3/uL (1.2-3.4) 06/10/23 05:24
Absolute Monos (auto) 0.9 10^3/uL (0.1-0.6) H 06/10/23 05:24
Absolute Basos (auto) 0.0 10^3/uL (0-0.2) 06/10/23 05:24
Immature Gran % 0.3 % (0-0.5) 06/10/23 05:24
Neutrophils % 54.0 % (42.2-75.2) 06/10/23 05:24
Lymphocytes % 31.0 % (20.5-51.1) 06/10/23 05:24
Monocytes % 14.0 % (1.7-9.3) H 06/10/23 05:24
Eosinophils % 0.2 % (0-6) 06/10/23 05:24
Basophils % 0.5 % (0-2) 06/10/23 05:24
ESR 25 mm/hour (0-20) H 06/08/23 16:10
Lactic Acid Cancelled 06/08/23 20:00
C-Reactive Protein 46.60 mg/L (0.0-10.00) H 06/10/23 05:24
Microbiology Results
Micro:
06/08/23 16:10 Salmonella/Shigella Culture - Preliminary
Feces/Stool Culture in Progress
Campylobacter Culture - Preliminary
Culture in Progress
Shiga Toxin Test - Final
No E. coli Shiga Toxin 1 or 2 detected.
06/08/23 16:09 Blood Culture - Preliminary
Blood/Venous No Growth in 24 hours- Final report to follow
06/08/23 18:08 Blood Culture - Preliminary
Blood/Venous No Growth in 24 hours- Final report to follow
06/09/23 01:43 Stool Leukocytes - Final
Feces/Stool
06/08/23 16:10 Cryptosporidium/Giardia - Final
Feces/Stool Negative for Cryptosporidium and/or Giardia Lamblia
antigens.
C. difficile GDH Antigen & Toxins - Final
Negative for toxigenic C.difficile
- Final
Negative for Norovirus GI and GII.
06/08/23 14:43 Influenza Types A & B (RAMA) - Final
Nasal Swab Negative for Influenza A & B, NAAT
Negative results must be combined with clinical observations
and patient history.
Nucleic Acid Amplification test (NAAT)performed on the
[employer] platform.
06/10/[address]: There are multiple old small pulmonary nodules as described. No PNA. Bronchitis suggested.
Assessment / Plan
# Fever
- resolving
-normal wbc
-blood cx's neg to date
-?due to bronchitis
# Chronic diarrhea
-recent dx of microscopic collagenous colitis by biopsy at [facility]
-IBD workup in progress
- Stool C. diff, norovirus, O+P negative; Shigatoxin negative
- Multiple travel to the [place] last year
Recommendation:
-DC Zosyn
-Start empiric ceftriaxone and azithromycin for bronchitis and diarrhea (although chronicity of diarrhea suggests likely non-infectious source).
- Follow temps.
[2023-06-10 12:04] LABS: Glucose - Point of Care 159 mg/dl (70-99)
--- NOTE | 2023-06-10 12:07 | W.PN.GI.CBS2 ---
Addendum entered and electronically signed by Melissa Henriquez DO 06/10/23 15:24:
Patient seen and examined independently of LINER REPLACER. I agree with her note with my additions below
No significant pain, just overall achy. abdomen is soft and non-tender. no rash on skin.
# Diarrhea -watery, bland, consistent with her microscopic colitis diagnosis. Stool studies negative
Today is day 5 of budesonide. Will increase her Imodium. Would prefer to titrate up on the Imodium before starting cholestyramine
This is not consistent with inflammatory bowel disease and does not explain her fever
ok for low fat diet
# Fever -yesterday she was 103, today 99 and feels achy
ID following
Original Note:
Today's Communication / Plan
-
Add Questran. Imodium as needed. Will change to low residue low lactose diet. Follow stool culture and fecal calprotectin. Carcinoid workup as per heme-onc.
Assessment / Plan
-
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
and fevers. She normally has her care through [facility], where she had a colonoscopy done with Dr. Alfred on 05/23 which confirmed the microscopic colitis but otherwise normal. She has also had weight loss and has avoided eating as she
has been fearful due to her diarrhea. She notes that she has taken Pepto-Bismol which has been helpful but has avoided Imodium due to fears of becoming constipated with prior history of significant hemorrhoids. She has been on a brat diet for the
past several months with no improvement. She denies use of any triggering medications such as NSAIDs or PPIs. She started on budesonide prior to admission but is unsure if this has been helpful. Stool studies negative for C. difficile,
Giardia/crypto, norovirus, Shiga toxin 1 or 2, with stool culture pending. She has had some improvement with Imodium here but continues with loose stools.
Problem list:
#1 Diarrhea -watery, frequent and urgent without significant abdominal pain.
---Consistent with microscopic colitis picture as diagnosed on 05/23/2023 during her colonoscopy. Was started on budesonide 9 mg prior to admission
--- Continue budesonide 9 mg daily
---We will trial Questran 4 g daily as she is fearful to continue on Imodium. I advised her she can use Imodium only as needed
--- Advised by Dr. Henriquez to stop smoking as this is often not controllable with continued tobacco use
--- Follow stool culture which is pending, otherwise stool studies are negative.
--- Follow fecal calprotectin
#2: Weight loss -patient has a good appetite but she is nervous about eating because of the diarrhea.
---Prior CT abdomen pelvis imaging at [place] reportedly normal aside from a small pulmonary nodule in ovarian cyst.
---Underlying workup for carcinoid as per heme-onc
--- Per them outpatient PET scan
#3: Fever -patient states it has been 99-100 for over a month but more recently went to 103 yesterday
--- Currently with no signs of infection. Viral swab negative for influenza, COVID swab negative
--- Unlikely to be GI cause for fevers
--- Follow-up with heme-onc for further workup outpatient for fevers of unknown origin
--- Blood cultures are negative to date
Subjective
Subjective
Date of Service: June 10, 2023
The pt was seen and examined at the bedside. She reports her diarrhea is somewhat improved since starting on imodium but she is fearful to get constipated. She had 3 bowel movements since last night. She does still have some urgency without any
abdominal cramping. Stool studies are essentially negative, with pending stool culture.
Objective
Data Reviewed
Laboratory Data:
Laboratory Results
06/10/23 05:24
06/10/23 05:24
Laboratory Results
Magnesium 1.9 mg/dl (1.6-2.3) 06/10/23 05:24
Total Bilirubin 0.4 mg/dl (0.2-1.3) 06/08/23 16:10
AST 24 U/L (14-36) 06/08/23 16:10
ALT 14 U/L (0-35) 06/08/23 16:10
Alkaline Phosphatase 73 U/L (38-126) 06/08/23 16:10
Lipase 169 U/L (23-300) 06/08/23 16:10
Vital Signs and I&O:
Vital Signs
Temp Pulse Resp BP Pulse Ox
98.8 F 78 16 95/69 98
06/10/23 07:00 06/10/23 07:00 06/10/23 07:00 06/10/23 07:00 06/10/23 07:00
I&O
06/09/23 06/10/23 06/11/23
06:59 06:59 06:59
Intake Total 2189
Balance 2189 / 2189
Physical Exam
Physical Exam
HEENT: Anicteric
Cardiology: S1 and S2 (regular rate/rhythm)
Pulmonary: Clear
GI: Soft, Non Distended, Tender (minimally tender), Non Tender and Normal Bowel Sounds
Extremities: No Edema
[2023-06-10] MEDS: ROCEPHIN 1000 MG IV (12:43)
[2023-06-10] MEDS: ZITHROMAX 500 MG PO (12:43)
[2023-06-10] MEDS: STERILE WATER FOR INJECTION 10 ML IV (12:43)
[2023-06-10] MEDS: FLUSH (NSS) 2 FLUSH IV (12:46)
--- NOTE | 2023-06-10 14:02 | PN.CDI ---
CDI
- -
CDI:
Physician Documentation Request
Admit Date: 06/08/23 18:34
Dear Doctor Emeli,
Please review the following and provide your response in the progress notes.
Clinical Indicators:
- 06/09 Finished Stock Inspector indicates severe protein calorie malnutrition
- Unintentional weight loss >7.5% in 3 months
- 'Overall states 15lbs lost in 6 months. the 10lbs loss in 2 months reflects an 8% change'
- Nutrient intake </= 75% estimated energy needs, greater than or equal to 1 month
Based on the information and meeting ASPEN criteria, which of the following most accurately represents the patient's nutritional status?
Severe protein calorie malnutrition
Other
[place] Criteria ([facility] Hospitalist 2017)
2 or more criteria must be present for either
non severe or severe malnutrition
Note that the criteria differs related to the
presence of an acute or chronic illness
Acute Illness Chronic Illness
Energy Intake Non Severe: <75% for >7 days Non Severe: <75% for >1 month
Severe: <50% for >5 days Severe: <75% for >1 month
Weight Loss Non Severe: 1-2% over 1 week Non Severe: 5% over 1 month
5% over 1 month 7.5% over 3 months
7.5% over 3 months 10% over 6 months
1 year N/A 20% over 1 year
Severe: >2% over 1 week Severe: >5% over 1 month
>5% over 1 month >7.5% over 3 months
>7.5% over 3 months >10% over 6 months
1 year N/A >20% over 1 year
Body Fat Non Severe: Mild Decrease Non Severe: Mild Loss
Severe: Moderate Decrease Severe: Severe Loss
Muscle Mass Non Severe: Mild Decrease Non Severe: Mild Loss
Severe: Moderate Decrease Severe: Severe Loss
Fluid Accumulation Non Severe: Mild Accumulation Non Severe: Mild Accumulation
Severe: Moderate to severe Severe: Moderate to severe
accumulation accumulation
Reduced Motor Vehicle Operator Road Supervisor Strength Non Severe: N/A Non Severe: N/A
Severe: Measurably reduced Severe: Measurably reduced
Additional criteria that can be used to Determine if Mild or Moderate Malnutrition ([employer]ck Manual 2018)
Mild Moderate Severe
Albumin gm/dl <3.0 gm/dl <2.5 gm/dl <2.0 gm/dl
Pre Albumin mg/dl <15 gm/dl <10 mg/dl <5.0 mg/dl
BMI <18.5 <17 <16
Use of terms such as suspected, likely, concern for, or probable (associated with a specific diagnosis that is being evaluated, monitored, or treated as if it exists) are acceptable and can be coded in the inpatient setting, when documented at the
time of discharge.
Thank you,
Uri Bentley RN
CDI Specialist
Please use your independent medical judgment in providing your response.
[2023-06-10 15:12] VITALS: BP 92/67
--- NOTE | 2023-06-10 16:07 | CM ---
CM met with pt bedside
Pt resides with her adult son in a 2SH with 3STE
Full flight to second floor
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
Will be starting new job at [employer] next week
debies hx with VN/SNF
PCP- Yessica De Souza
Rx- Matheus-Sarai
Pt listed as MA pending
Per pt, pt with [employer] through [facility] insurance
Update provided to admissions
Discharge Disposition- home, no needs
[2023-06-10] MEDS: LEXAPRO 10 MG PO (17:08)
[2023-06-10] MEDS: TYLENOL 650 MG PO (17:10)
[2023-06-10 17:28] LABS: Glucose - Point of Care 168 mg/dl (70-99)
[2023-06-10 21:31] LABS: Glucose - Point of Care 89 mg/dl (70-99)
[2023-06-10 23:00] VITALS: BP 122/69
[2023-06-11] MEDS: IMODIUM 2 MG PO ×3 (05:27→17:01)
[2023-06-11 05:41] LABS: % Basophils 0.4 % (0-2); % Eosinophils 0.6 % (0-6); % Immature Granulocytes 0.4 % (0-0.5); % Monocytes 17.8 % (1.7-9.3); % Neutrophils 41.8 % (42.2-75.2); Absolute Lymphocytes 1.8 10^3/uL (1.2-3.4); Absolute Monocytes 0.8 10^3/uL (0.1-0.6); Hematocrit 34.8 % (37.0-47.0); Mean Corp Hgb Conc. 34.5 g/dL (33.0-37.0); Mean Corpuscular Hgb 29.3 pg (27.0-31.0); Mean Corpuscular Volume 85.1 fL (81.0-99.0); Mean Platelet Volume 9.1 fL (7.4-10.4); Nucleated Red Blood Cells % 0 %; Platelet Count 264 10^3/uL (130-400); Red Blood Cell Count 4.09 10^6/uL (4.20-5.40); Red Cell Dist. Width 12.5 % (11.5-14.5); White Blood Cell Count 4.7 10^3/uL (4.8-10.8)
[2023-06-11 06:00] VITALS: BMI 19.0
[2023-06-11 06:17] LABS: Blood Urea Nitrogen 5 mg/dl (7-17); Calcium 8.1 mg/dl (8.4-10.2); Carbon Dioxide 26 mmol/L (22-30); Chloride 105 mmol/L (98-107); Estimated Creatinine Clearance 73 ml/min; Glucose 88 mg/dl (70-99); Potassium 3.5 mmol/L (3.5-5.1); Sodium 133 mmol/L (135-145); eGFR > 60.00
[2023-06-11 07:26] VITALS: BP 117/78
[2023-06-11 07:45] VITALS: BP 103/74
[2023-06-11] MEDS: ZITHROMAX 500 MG PO (07:56)
[2023-06-11] MEDS: ENTOCORT EC 9 MG PO (07:57)
[2023-06-11 08:04] LABS: Glucose - Point of Care 97 mg/dl (70-99)
--- NOTE | 2023-06-11 10:11 | W.PN.ID1 ---
Date of Service
Date of Service: June 11, 2023
Today's Communication
DC abx's.
Check for T. whipplei
Assessment / Plan
# Diarrhea, weight loss, arthralgias
- Check for T. whipplei PCR in blood.
# Fever resolved
-normal wbc
-blood cx's neg to date
-DC abx
# Viral bronchitis
- cough nonproductive
- DC empiric ceftriaxone/azithromycin
# Chronic diarrhea
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
- Stool C. diff, norovirus, O+P negative; Shigatoxin negative, stool cx negative
- No response to current abx. DC empric ceftriaxone/azithromycin
#Additional Past Medical History:
Diet-controlled DM
microscopic colitis
Anxiety/depression
pulm nodules
COPD
Chief Complaint
-: Fever
Subjective / Review of Systems
c/o low grade temps 99 associated with joint aches.
Chronic diarrhea stable.
Has dry cough.
Hungry but no appetite.
Vital Signs / Physical Exam
Vital Signs
Vital Signs
Temp Pulse Resp BP Pulse Ox
99 F 70 18 103/74 97
06/11/23 07:45 06/11/23 07:45 06/11/23 07:45 06/11/23 07:45 06/11/23 07:45
Physical Exam
Constitutional: No Acute Distress and Comfortable
Cardiovascular: Regular Rate and S1/S2
Pulmonary: Clear
Gastrointestinal: Non Tender and Non Distended
Extremities: Negative Edema
Musculoskeletal: Negative Joint Swelling or Joint Effusion
Neurological: AO x 3
Objective Data
Lab Data
Lab Results
06/11/23 05:18
06/11/23 05:18
ESR 25 mm/hour (0-20) H 06/08/23 16:10
Estimated Creat Clear 73 ml/min 06/11/23 05:18
Lactic Acid Cancelled 06/08/23 20:00
Total Bilirubin 0.4 mg/dl (0.2-1.3) 06/08/23 16:10
AST 24 U/L (14-36) 06/08/23 16:10
ALT 14 U/L (0-35) 06/08/23 16:10
Alkaline Phosphatase 73 U/L (38-126) 06/08/23 16:10
C-Reactive Protein 27.20 mg/L (0.0-10.00) H 06/11/23 05:18
Most recent labs reviewed.
Micro Results:
06/08/23 16:10 Salmonella/Shigella Culture - Final
Feces/Stool No Salmonella, Shigella, Aeromonas or Plesiomonas species
isolated.
Campylobacter Culture - Final
No Campylobacter species isolated.
Shiga Toxin Test - Final
No E. coli Shiga Toxin 1 or 2 detected.
06/08/23 16:09 Blood Culture - Preliminary
Blood/Venous No Growth in 48 hours- Final report to follow
06/08/23 18:08 Blood Culture - Preliminary
Blood/Venous No Growth in 48 hours- Final report to follow
06/09/23 01:43 Stool Leukocytes - Final
Feces/Stool
06/08/23 16:10 Cryptosporidium/Giardia - Final
Feces/Stool Negative for Cryptosporidium and/or Giardia Lamblia
antigens.
C. difficile GDH Antigen & Toxins - Final
Negative for toxigenic C.difficile
- Final
Negative for Norovirus GI and GII.
06/08/23 14:43 Influenza Types A & B (RAMA) - Final
Nasal Swab Negative for Influenza A & B, NAAT
Negative results must be combined with clinical observations
and patient history.
Nucleic Acid Amplification test (NAAT)performed on the
[employer] platform.
06/10/[address]: There are multiple old small pulmonary nodules as described. No PNA. Bronchitis suggested.
--- NOTE | 2023-06-11 10:23 | W.PN.GI.CBS2 ---
Addendum entered and electronically signed by Arlene Rojas MD 06/11/23 18:47:
I saw and examined the patient.
The SPECIAL AGENT IN CHARGE's note was reviewed and I agree with the note.
Comment: Diarrhea slowly improving and fever also is resolving she says her stools are less frequent and smaller volume and slightly more consistency to it. She is currently receiving Imodium 2 mg every 6 hours along with the budesonide 9 mg p.o.
daily. will decrease Imodium to tid. Will also get celiac serologies since sometimes may have overlap with microscopic colitis. Will add Questran also if diarrhea persists. She is also currently undergoing fever workup per ID also being ruled out
for T. whipplei and also is getting workup for ruling out NET per hematology. Antibiotics have been discontinued also and stool cultures are negative. Blood cultures are also negative
Original Note:
Today's Communication / Plan
-
see below
cont Imodium and Budesonide
cont work up per ID and heme onc to rule out other causes
cont diet as tolerated
reviewed list of meds that can flare microscopic colitis -- pt was on Cymbalta last fall and stopped in February
Assessment / Plan
-
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
and fevers. She normally has her care through [facility], where she had a colonoscopy done with Dr. Alfred on 05/23 which confirmed the microscopic colitis but otherwise normal. She has also had weight loss and has avoided eating as she
has been fearful due to her diarrhea. She notes that she has taken Pepto-Bismol which has been helpful but has avoided Imodium due to fears of becoming constipated with prior history of significant hemorrhoids. She has been on a brat diet for the
past several months with no improvement. She denies use of any triggering medications such as NSAIDs or PPIs. She started on budesonide prior to admission but is unsure if this has been helpful. Stool studies negative for C. difficile,
Giardia/crypto, norovirus, Shiga toxin 1 or 2, with stool culture pending. She has had some improvement with Imodium here but continues with loose stools.
Problem list:
#1 Diarrhea -watery, frequent and urgent without significant abdominal pain.
---Consistent with microscopic colitis picture as diagnosed on 05/23/2023 during her colonoscopy.
--- Continue budesonide 9 mg daily started 06/09
--- cont Imodium Q 6 hr
---low lactose diet
---tobacco abstinence
--- I reviewed list of medication with higher likelihood of microcytic colitis -- interesting she was started on Cymbalta with onset but stopped in February -- copy of med list that can flare disease given to patient
---CRP 24.5-- 46.6--27.5
---fecal karsten pending
#2: Weight loss -patient has a good appetite but she is nervous about eating because of the diarrhea.
---Prior CT abdomen pelvis imaging at [place] reportedly normal aside from a small pulmonary nodule in ovarian cyst.
repeat CT chest with muliple old small pulm nodules, for OP pet, oncology following
---Underlying workup for carcinoid as per heme-onc-- chromagranin A, 5hiaa pending
#3: Fever -patient states it has been 99-100 for over a month but more recently went to 103 06/09
--- ID following possible bronchitis vs other appreciate input for T whipplei PCR
--- Currently with no signs of infection. Viral swab negative for influenza, COVID swab negative
--- Unlikely to be GI cause for fevers
--- Follow-up with heme-onc for further workup outpatient for fevers of unknown origin
--- Blood cultures are negative to date
Subjective
Subjective
Date of Service: June 11, 2023
06/10 brown loose stool on low lactose diet slight improvement but still with nausea
Objective
Data Reviewed
Laboratory Data:
Laboratory Results
06/11/23 05:18
06/11/23 05:18
Laboratory Results
Magnesium 1.9 mg/dl (1.6-2.3) 06/10/23 05:24
Total Bilirubin 0.4 mg/dl (0.2-1.3) 06/08/23 16:10
AST 24 U/L (14-36) 06/08/23 16:10
ALT 14 U/L (0-35) 06/08/23 16:10
Alkaline Phosphatase 73 U/L (38-126) 06/08/23 16:10
Lipase 169 U/L (23-300) 06/08/23 16:10
Vital Signs and I&O:
Vital Signs
Temp Pulse Resp BP Pulse Ox
99 F 70 18 103/74 97
06/11/23 07:45 06/11/23 07:45 06/11/23 07:45 06/11/23 07:45 06/11/23 07:45
I&O
06/10/23 06/11/23 06/12/23
06:59 06:59 06:59
Intake Total 2189 180 / 180
Balance 2189 180 / 180
Physical Exam
Physical Exam
HEENT: Anicteric and Moist mucous membranes
Pulmonary: Clear
GI: Soft, Non Distended and Non Tender
Extremities: No Edema
Neuro: Non Focal
[2023-06-11 11:55] LABS: Glucose - Point of Care 147 mg/dl (70-99)
--- NOTE | 2023-06-11 12:35 | W.PN.HOSP.TC ---
Addendum entered and electronically signed by Marielos Sainz MD 06/11/23 14:50:
# Severe protein calorie malnutrition
Original Note:
Today's Communication/Plan
-
see A/P
Assessment / Plan
Assessment / Plan
62-year-old female, recently diagnosed with microscopic colitis and started with budesonide and as needed Bentyl, ?resolved diabetes mellitus; presented with fever, persistent abdominal pain with chronic diarrhea.
She had a colonoscopy at [facility] earlier this month with biopsy that showed microscopic colitis. She reported weight loss of 15lbs over the past 6 months.�
A/P:
# Fever, unknown origin
recent outpt CT unrevealing
C diff/Norovirus/ stool Cryptosporidium/Giardia negative, stool Cx negative
Blood culture negative
empiric Zosyn was DCed by ID
Observe temp off further ABx
Appreciate heme input, diagnostic CT chest noted multiple old small pulmonary nodules, check PET scan outpt. Eval for carcinoid syndrome as possible source of diarrhea: serum chromogranin, 24-hr urine for 5-HIAA.
# Abdominal Pain / severe persistent diarrhea, due to microscopic colitis
Continue SUPERVISOR DECORATING budesonide
C diff/Norovirus/ stool Cryptosporidium/Giardia negative, stool Cx negative
Imodium PRN
GI on board
# Hypokalemia due to diarrhea
replete K
Mag WNL
# Bilateral symmetric small joint stiffness and mild pain throughout the day, ankle joint pain/stiffness
Pt is concern this could be rheumatoid arthritis developing (mother has RA)
Microscopic colitis certainly is closely linked with rheumatoid arthritis (increases the risk of developing RA)
Check CAROL (though not typically elevated in RA)
Check RF and anti-CCP
Recc outpt Rheum follow up
# Resolved Diabetes Mellitus Type II
Per patient, she no longer requires meds following weight loss
A1C 6.2%
# Anxiety/Depression
Continue Lexapro and Ativan prn as prior to admission
# Pulmonary Nodules
diagnostic CT chest noted multiple old small pulmonary nodules
Follow-up with pulmonary as outpatient
# Tobacco Use Disorder
Encourage smoking cessation
Continue nicotine patch
DVT proph: SCDs
Code Status: Full Code
total time spent 51 min
Anticipated Discharge: 24 - 48 hours
Subjective/Interval History
-
Date of Service: June 11, 2023
Objective Data
-
Labs:
Laboratory Results
06/11/23
05:18
WBC 4.7 L
Hgb 12.0
Hct 34.8 L
Plt Count 264
Sodium 133 L
Potassium 3.5
Chloride 105
Carbon Dioxide 26
BUN 5 L
Creatinine 0.7
Glucose 88
Calcium 8.1 L
Vital Signs:
Vital Signs
Temp Pulse Resp BP Pulse Ox
37.2 C 70 18 103/74 97
06/11/23 07:45 06/11/23 07:45 06/11/23 07:45 06/11/23 07:45 06/11/23 07:45
I&O
06/10/23 06/11/23 06/12/23
06:59 06:59 06:59
Intake Total 2189 180 / 180
Balance 2189 180 / 180
Review of Systems
-
Abdomen/GI: Reports Diarrhea
Musculoskeletal: Reports Joint Pain (small bilateral symmetric joints in hands, BL ankles); Denies Joint Swelling
Physical Exam
-
General: Well Developed, Well Nourished, No Apparent Distress, Comfortable and Conversant; Negative Respiratory Distress
HEENT: Normocephalic, Atraumatic, Nose Appears Normal and Ears Appear Normal; Negative Oxygen
Respiratory: Clear to Auscultation and Non Labored Respirations; Negative Accessory Resp Muscle Use
Cardiac: Regular Rhythm and S1/S2
GI: Soft, Nontender, Nondistended and Normal Bowel Sounds
Skin: Warm and Dry
Neuro: Awake, Alert, Oriented and AO x 3
Psych: Calm and Intact Judgement/Insight
Data Reviewed
-
Labs: Labs Reviewed by me
[2023-06-11] MEDS: KCL 40 MEQ PO (12:46)
[2023-06-11 14:10] LABS: Erythrocyte Sed Rate 26 mm/hour (0-20)
[2023-06-11 15:00] VITALS: BP 102/67
--- NOTE | 2023-06-11 16:06 | CM ---
Home no needs when stable.
Plan; Home no needs.
[2023-06-11 16:57] LABS: Glucose - Point of Care 158 mg/dl (70-99)
[2023-06-11] MEDS: LEXAPRO 10 MG PO (17:01)
[2023-06-11] MEDS: TYLENOL 650 MG PO (17:07)
[2023-06-11 23:09] LABS: Glucose - Point of Care 98 mg/dl (70-99)
[2023-06-11 23:43] VITALS: BP 106/67
[2023-06-12] MEDS: IMODIUM PO (00:06)
[2023-06-12 05:45] LABS: % Basophils 0.5 % (0-2); % Eosinophils 0.8 % (0-6); % Immature Granulocytes 0.8 % (0-0.5); % Lymphocytes 47.6 % (20.5-51.1); % Monocytes 17.7 % (1.7-9.3); % Neutrophils 32.6 % (42.2-75.2); Absolute Lymphocytes 1.8 10^3/uL (1.2-3.4); Absolute Monocytes 0.7 10^3/uL (0.1-0.6); Absolute Neutrophils 1.2 10^3/uL (1.4-6.5); Hematocrit 35.7 % (37.0-47.0); Hemoglobin 12.3 g/dL (12.0-16.0); Mean Corp Hgb Conc. 34.5 g/dL (33.0-37.0); Mean Corpuscular Hgb 29.2 pg (27.0-31.0); Mean Corpuscular Volume 84.8 fL (81.0-99.0); Mean Platelet Volume 9.2 fL (7.4-10.4); Nucleated Red Blood Cells % 0 %; Platelet Count 260 10^3/uL (130-400); Red Blood Cell Count 4.21 10^6/uL (4.20-5.40); Red Cell Dist. Width 12.3 % (11.5-14.5); White Blood Cell Count 3.8 10^3/uL (4.8-10.8)
[2023-06-12 06:00] VITALS: BMI 19.0
[2023-06-12 06:09] LABS: Blood Urea Nitrogen 7 mg/dl (7-17); Calcium 8.1 mg/dl (8.4-10.2); Carbon Dioxide 29 mmol/L (22-30); Chloride 104 mmol/L (98-107); Estimated Creatinine Clearance 73 ml/min; Glucose 85 mg/dl (70-99); Magnesium 2.2 mg/dl (1.6-2.3); Potassium 3.6 mmol/L (3.5-5.1); Sodium 136 mmol/L (135-145); eGFR > 60.00
[2023-06-12 07:18] LABS: Glucose - Point of Care 118 mg/dl (70-99)
[2023-06-12 07:40] VITALS: BP 111/68
[2023-06-12 07:56] LABS: Glucose - Point of Care 89 mg/dl (70-99)
[2023-06-12] MEDS: ENTOCORT EC 9 MG PO (07:59)
[2023-06-12] MEDS: IMODIUM 2 MG PO ×2 (07:59→20:58)
--- NOTE | 2023-06-12 08:18 | W.PN.ONC2 ---
Today's Communication / Plan
-
Malignancy w/u so far negative. CT shows stable pulm nodules. LRADS2 (benign). Awaiting 24hr urine 5HIAA and chromogranin-A.
Impression
Impression
Diarrhea with microscopic colitis on colonoscopy
Fever
Unintentional weight loss
hx pulmonary nodules
Ovarian cyst
COPD
Anxiety/depression
Plan
Plan
Malignancy w/u so far negative. CT shows stable pulm nodules. LRADS2 (benign). Awaiting 24hr urine 5HIAA and chromogranin-A.
Eval for carcinoid syndrome as possible source of diarrhea: serum chromogranin, 24-hr urine for 5-HIAA.
CBC unremarkable other than elevated WBC.
No evidence of maligancy on exam, scans, CBC.
Subjective/Objective
Chief Complaint
ACS Heme Onc
Subjective
Diarrhea improving.
Vital Signs:
Vital Signs
Temp Pulse Resp BP Pulse Ox
98.1 F 61 17 111/68 97
06/12/23 07:40 06/12/23 07:40 06/12/23 07:40 06/12/23 07:40 06/12/23 07:40
Lab Results:
Laboratory Data
WBC 3.8 10^3/uL (4.8-10.8) L 06/12/23 05:24
Hgb 12.3 g/dL (12.0-16.0) 06/12/23 05:24
Plt Count 260 10^3/uL (130-400) 06/12/23 05:24
eGFR > 60.00 06/12/23 05:24
Physical Exam
AAOx3 NAD
HEENT: No Jaundice
Cardiology: S1 and S2
Pulmonary: Clear
[2023-06-12 11:00] VITALS: BP 111/78
--- NOTE | 2023-06-12 11:35 | W.PN.GI.CBS2 ---
Addendum entered and electronically signed by Arlene Rojas MD 06/12/23 15:43:
I saw and examined the patient.
The ACCOUNT UNDERWRITER's note was reviewed and I agree with the note.
Comment: Symptoms have improved on Imodium and budesonide stool studies are negative for infection. Workup pending for NET and celiac serologies pending, T. whipplei PCR in blood pending. Will decrease Imodium to 2 mg twice daily she only had 1
bowel movement today. Will follow-up with her development planner at [facility] after discharge. And she will follow-up with oncology as outpatient also for the pulmonary nodules for PET scan. will sign off and will be available as needed
Original Note:
Today's Communication / Plan
-
diarrhea with improvement -- one loose stool today
fever resolved, ID following, off abx
. --- Continue budesonide 9 mg daily started 06/09
--- cont Imodium weaned to 2mg Q 8 hours yesterday-- discussed with patient further wean -- she will decline later dose if no further stools
---cont low lactose diet
---tobacco abstinence
--- 06/11 reviewed list of medication with higher likelihood of microcytic colitis -- interesting she was started on Cymbalta with onset but stopped in February -- copy of med list that can flare disease given to patient
---CRP 24.5-- 46.6--27.5
---fecal karsten pending
-- chromagranin A, 5hiaa pending reviewed if follow up at [facility] to call for results
--cont follow with oncology
-- OP GI follow up with [facility] as seen prior to admission-- office has called pt to schedule
Assessment / Plan
-
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
and fevers. She normally has her care through [facility], where she had a colonoscopy done with Dr. Alfred on 05/23 which confirmed the microscopic colitis but otherwise normal. She has also had weight loss and has avoided eating as she
has been fearful due to her diarrhea. She notes that she has taken Pepto-Bismol which has been helpful but has avoided Imodium due to fears of becoming constipated with prior history of significant hemorrhoids. She has been on a brat diet for the
past several months with no improvement. She denies use of any triggering medications such as NSAIDs or PPIs but was on Cymbalta last fall. She started on budesonide prior to admission but is unsure if this has been helpful..
Problem list:
-diarrhea
-recent diagnosis microscopic colitis from colon 05/23
-fever
-wt loss
Plan:
diarrhea with improvement -- one loose stool today
fever resolved, ID following, off abx
. --- Continue budesonide 9 mg daily started 06/09
--- cont Imodium weaned to 2mg Q 8 hours yesterday-- discussed with patient further wean -- she will decline later dose if no further stools
---cont low lactose diet
---tobacco abstinence
--- 06/11 reviewed list of medication with higher likelihood of microcytic colitis -- interesting she was started on Cymbalta with onset but stopped in February -- copy of med list that can flare disease given to patient
---CRP 24.5-- 46.6--27.5
---fecal karsten pending
-- chromagranin A, 5hiaa pending reviewed if follow up at [facility] to call for results
--cont follow with oncology
-- OP GI follow up with [facility] as seen prior to admission-- office has called pt to schedule
Subjective
Subjective
Date of Service: June 12, 2023
06/11 brown stool and some loose stool this am but improving, low lactose diet no further fever
Objective
Data Reviewed
Laboratory Data:
Laboratory Results
06/12/23 05:24
06/12/23 05:24
Laboratory Results
Magnesium 2.2 mg/dl (1.6-2.3) 06/12/23 05:24
Total Bilirubin 0.4 mg/dl (0.2-1.3) 06/08/23 16:10
AST 24 U/L (14-36) 06/08/23 16:10
ALT 14 U/L (0-35) 06/08/23 16:10
Alkaline Phosphatase 73 U/L (38-126) 06/08/23 16:10
Lipase 169 U/L (23-300) 06/08/23 16:10
Vital Signs and I&O:
Vital Signs
Temp Pulse Resp BP Pulse Ox
98.1 F 61 17 111/68 97
06/12/23 07:40 06/12/23 07:40 06/12/23 07:40 06/12/23 07:40 06/12/23 07:40
I&O
06/11/23 06/12/23 06/13/23
06:59 06:59 06:59
Intake Total 180 / 180 740 / 740
Balance 180 / 180 740 / 740
Physical Exam
Physical Exam
HEENT: Anicteric and Moist mucous membranes
Cardiology: Normal Sinus Rhythm
Pulmonary: Clear
GI: Soft, Non Distended and Non Tender
Extremities: No Edema
Neuro: Non Focal
--- NOTE | 2023-06-12 11:43 | CM ---
Patient seen at bedside with physician. Patient confirmed that she would plan to return to home where she lives with 24 year old son and the girlfriend. Patient owns home, 2 story home. Patient PCP Dr. De Souza and she uses the [facility] on [address]. Patient is independent of ADL's and IADL's. Patient has no DME at home. Plan for discharge home with VN if needed. CM will continue to follow for discharge planning needs.
Plan; home with VN vs home with no needs.
[2023-06-12] MEDS: NSS (PRESERVATIVE FREE) 0.125 ML IV (11:54)
[2023-06-12] MEDS: ATIVAN 0.25 MG IV (11:55)
[2023-06-12 12:01] LABS: Glucose - Point of Care 127 mg/dl (70-99)
--- NOTE | 2023-06-12 12:11 | W.PN.HOSP.TC ---
Today's Communication/Plan
-
tele
ativan x 1
follow
Assessment / Plan
Assessment / Plan
62-year-old female, recently diagnosed with microscopic colitis and started with budesonide and as needed Bentyl, ?resolved diabetes mellitus; presented with fever, persistent abdominal pain with chronic diarrhea.
She had a colonoscopy at [facility] earlier this month with biopsy that showed microscopic colitis. She reported weight loss of 15lbs over the past 6 months.�
Fever, unknown origin--recent outpt CT unrevealing--C diff/Norovirus/ stool Cryptosporidium/Giardia negative, stool Cx negative, blood culture negative--apprec ID, zosyn stopped
Abdominal Pain/persistent diarrhea, due to microscopic colitis--Continue [employer] SUPERVISOR budesonide--C diff/Norovirus/ stool Cryptosporidium/Giardia negative, stool Cx negative --Imodium PRN --GI on board
Hypokalemia due to diarrhea--replete K--Mag WNL
Bilateral symmetric small joint stiffness and mild pain throughout the day, ankle joint pain/stiffness--Pt is concern this could be rheumatoid arthritis developing (mother has RA)--Microscopic colitis certainly is closely linked with rheumatoid
arthritis (increases the risk of developing RA)--Check CAROL (though not typically elevated in RA)--Check RF and anti-CCP--Rec outpt Rheum follow up
Type 2 DM--with weight loss, no longer requiring meds--A1C 6.2%
Anxiety/Depression--Continue Lexapro and Ativan prn as prior to admission--suspect cause of fluttering and lightheaded--trying 0.25 mg IV ativan x 1--will place pt on tele as well
Pulmonary Nodules--Appreciate heme input, diagnostic CT chest noted multiple old small pulmonary nodules, check PET scan outpt. Eval for carcinoid syndrome as possible source of diarrhea: serum chromogranin, 24-hr urine for 5-HIAA--all
pending--diagnostic CT chest noted multiple old small pulmonary nodules--Follow-up with pulmonary as outpatient
Tobacco Use Disorder--Encourage smoking cessation--Continue nicotine patch
DVT proph: SCDs
Code Status: Full Code
Anticipated Discharge: > 48 hours
Subjective/Interval History
-
Date of Service: June 12, 2023
called to see patient for feeling fluttering, lightheaded--sitting on side of bed--says does NOT feel like it is COPD
Objective Data
-
Labs:
Laboratory Results
06/12/23
05:24
WBC 3.8 L
Hgb 12.3
Hct 35.7 L
Plt Count 260
Sodium 136
Potassium 3.6
Chloride 104
Carbon Dioxide 29
BUN 7
Creatinine 0.7
Glucose 85
Calcium 8.1 L
Vital Signs:
max temp for 24 hours
06/11/23
15:00
Temp 99.5 F
Vital Signs
Temp Pulse Resp BP Pulse Ox
98.1 F 78 17 111/78 97
06/12/23 07:40 06/12/23 11:00 06/12/23 07:40 06/12/23 11:00 06/12/23 07:40
I&O
06/11/23 06/12/23 06/13/23
06:59 06:59 06:59
Intake Total 180 / 180 740 / 740
Balance 180 / 180 740 / 740
Review of Systems
-
All other systems: Reviewed and negative
Cardiac: Reports Palpitations (fluttering)
Neuro: Reports Lightheadedness
Physical Exam
-
General: Well Developed and Well Nourished; Negative Comfortable (appears uncomfortable sitting up on the side of the bed)
HEENT: Normocephalic and Atraumatic; Negative Oxygen
Respiratory: Clear to Auscultation; Negative Wheezes, Rales, Rhonchi or Crackles
Cardiac: Regular Rhythm, S1/S2 and Other (reviewed EKG, SR 70 long qT--no heart block noted); Negative Murmur, Tachycardic or Bradycardic
GI: Soft, Nontender, Nondistended and Normal Bowel Sounds
Musculoskeletal: No Clubbing, No Cyanosis and No Edema
Neuro: Awake and Alert
Psych: Anxious (appears anxious)
[2023-06-12 13:56] LABS: tTG IgA Antibody 6.4 EU/ml (0-19); tTG IgG Antibody 7.5 EU/ml (0-19)
--- NOTE | 2023-06-12 14:02 | W.PN.ID1 ---
Date of Service
Date of Service: June 12, 2023
Today's Communication
Observe off abx.
Assessment / Plan
# Chronic diarrhea, weight loss, arthralgias
- T. whipplei PCR in blood pending
# Fever resolved
-normal wbc
-blood cx's neg to date
-observe off abx
# Chronic diarrhea
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
- Stool C. diff, norovirus, O+P negative; Shigatoxin negative, stool cx negative
- labs pending per GI.
#Additional Past Medical History:
Diet-controlled DM
microscopic colitis
Anxiety/depression
pulm nodules
COPD
Chief Complaint
-: Other (diarrhea)
Subjective / Review of Systems
Diarrhea resolved on Imodium. 1 loose BM today.
c/o heart fluttering. Now on Holter monitor
Vital Signs / Physical Exam
Vital Signs
Vital Signs
Temp Pulse Resp BP Pulse Ox
98.1 F 78 17 111/78 97
06/12/23 07:40 06/12/23 11:00 06/12/23 07:40 06/12/23 11:00 06/12/23 07:40
Physical Exam
Constitutional: No Acute Distress and Comfortable
Pulmonary: Clear
Gastrointestinal: Soft, Non Tender, Non Distended and Normal Bowel Sounds
Neurological: AO x 3
Objective Data
Lab Data
Lab Results
06/12/23 05:24
06/12/23 05:24
ESR 26 mm/hour (0-20) H 06/11/23 05:18
Estimated Creat Clear 73 ml/min 06/12/23 05:24
Lactic Acid Cancelled 06/08/23 20:00
Total Bilirubin 0.4 mg/dl (0.2-1.3) 06/08/23 16:10
AST 24 U/L (14-36) 06/08/23 16:10
ALT 14 U/L (0-35) 06/08/23 16:10
Alkaline Phosphatase 73 U/L (38-126) 06/08/23 16:10
C-Reactive Protein 27.20 mg/L (0.0-10.00) H 06/11/23 05:18
Most recent labs reviewed.
Micro Results:
06/08/23 16:09 Blood Culture - Preliminary
Blood/Venous No Growth in 72 hours- Final report to follow
06/08/23 18:08 Blood Culture - Preliminary
Blood/Venous No Growth in 72 hours- Final report to follow
06/08/23 16:10 Salmonella/Shigella Culture - Final
Feces/Stool No Salmonella, Shigella, Aeromonas or Plesiomonas species
isolated.
Campylobacter Culture - Final
No Campylobacter species isolated.
Shiga Toxin Test - Final
No E. coli Shiga Toxin 1 or 2 detected.
06/09/23 01:43 Stool Leukocytes - Final
Feces/Stool
06/08/23 16:10 Cryptosporidium/Giardia - Final
Feces/Stool Negative for Cryptosporidium and/or Giardia Lamblia
antigens.
C. difficile GDH Antigen & Toxins - Final
Negative for toxigenic C.difficile
- Final
Negative for Norovirus GI and GII.
06/08/23 14:43 Influenza Types A & B (RAMA) - Final
Nasal Swab Negative for Influenza A & B, NAAT
Negative results must be combined with clinical observations
and patient history.
Nucleic Acid Amplification test (NAAT)performed on the
[employer] platform.
06/10/[address]: There are multiple old small pulmonary nodules as described. No PNA. Bronchitis suggested.
[2023-06-12 15:28] VITALS: BP 104/68
[2023-06-12 17:00] LABS: Chromogranin A 92 ng/mL (0-187)
[2023-06-12] MEDS: LEXAPRO 10 MG PO (17:35)
[2023-06-12] MEDS: ATIVAN 0.5 MG PO (20:58)
[2023-06-12 21:09] VITALS: BP 109/72
[2023-06-12 21:39] LABS: Glucose - Point of Care 116 mg/dl (70-99)
[2023-06-12 23:23] VITALS: BP 110/72
[2023-06-12 23:23] LABS: Calprotectin, Fecal 166 ug/g (<=49)
[2023-06-12 23:38] VITALS: BP 108/67
[2023-06-13] LABS: IgA 265 mg/dl (70-400)
[2023-06-13 03:00] VITALS: BP 107/66
[2023-06-13 05:44] LABS: Hematocrit 33.4 % (37.0-47.0); Hemoglobin 11.7 g/dL (12.0-16.0); Mean Corpuscular Hgb 29.3 pg (27.0-31.0); Mean Corpuscular Volume 83.7 fL (81.0-99.0); Mean Platelet Volume 8.7 fL (7.4-10.4); Platelet Count 247 10^3/uL (130-400); Red Blood Cell Count 3.99 10^6/uL (4.20-5.40); Red Cell Dist. Width 12.4 % (11.5-14.5); White Blood Cell Count 4.8 10^3/uL (4.8-10.8)
[2023-06-13 06:00] VITALS: BMI 19.2
[2023-06-13 06:45] LABS: Blood Urea Nitrogen 8 mg/dl (7-17); Calcium 8.1 mg/dl (8.4-10.2); Carbon Dioxide 28 mmol/L (22-30); Chloride 106 mmol/L (98-107); Estimated Creatinine Clearance 73 ml/min; Glucose 77 mg/dl (70-99); Magnesium 2.2 mg/dl (1.6-2.3); Potassium 3.8 mmol/L (3.5-5.1); Sodium 136 mmol/L (135-145); eGFR > 60.00
[2023-06-13 07:00] VITALS: BP 112/69
[2023-06-13] MEDS: ENTOCORT EC 9 MG PO (08:01)
[2023-06-13] MEDS: IMODIUM 2 MG PO (08:03)
[2023-06-13 08:05] LABS: Glucose - Point of Care 91 mg/dl (70-99)
--- NOTE | 2023-06-13 11:19 | W.PN.HOSP.TC ---
Today's Communication/Plan
-
d/c
Assessment / Plan
Assessment / Plan
62-year-old female, recently diagnosed with microscopic colitis and started with budesonide and as needed Bentyl, ?resolved diabetes mellitus; presented with fever, persistent abdominal pain with chronic diarrhea.
She had a colonoscopy at [facility] earlier this month with biopsy that showed microscopic colitis. She reported weight loss of 15lbs over the past 6 months.�
Fever, unknown origin--recent outpt CT unrevealing--C diff/Norovirus/ stool Cryptosporidium/Giardia negative, stool Cx negative, blood culture negative--apprec ID, zosyn stopped
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
Hypokalemia due to diarrhea--replete K--Mag WNL
Bilateral symmetric small joint stiffness and mild pain throughout the day, ankle joint pain/stiffness--Pt is concern this could be rheumatoid arthritis developing (mother has RA)--Microscopic colitis certainly is closely linked with rheumatoid
arthritis (increases the risk of developing RA)--Check CAROL (though not typically elevated in RA)--Check RF and anti-CCP--Rec outpt Rheum follow up
Type 2 DM--with weight loss, no longer requiring meds--A1C 6.2%
Anxiety/Depression--Continue Lexapro and Ativan prn as prior to admission--suspect cause of fluttering and lightheaded--trying 0.25 mg IV ativan x 1--will place pt on tele as well
Pulmonary Nodules--Appreciate heme input, diagnostic CT chest noted multiple old small pulmonary nodules, check PET scan outpt. Eval for carcinoid syndrome as possible source of diarrhea: serum chromogranin, 24-hr urine for 5-HIAA--all
pending--diagnostic CT chest noted multiple old small pulmonary nodules--Follow-up with pulmonary as outpatient
Tobacco Use Disorder--Encourage smoking cessation--Continue nicotine patch
DVT proph: SCDs
Code Status: Full Code
Anticipated Discharge: Today
Subjective/Interval History
-
Date of Service: June 13, 2023
pt doing much better--agreeable to d/c
Objective Data
-
Labs:
Laboratory Results
06/13/23
05:36
WBC 4.8
Hgb 11.7 L
Hct 33.4 L
Plt Count 247
Sodium 136
Potassium 3.8
Chloride 106
Carbon Dioxide 28
BUN 8
Creatinine 0.7
Glucose 77
Calcium 8.1 L
Vital Signs:
max temp for 24 hours
06/13/23
03:00
Temp 99.1 F
Vital Signs
Temp Pulse Resp BP Pulse Ox
98.1 F 63 16 112/69 98
06/13/23 07:00 06/13/23 07:00 06/13/23 07:00 06/13/23 07:00 06/13/23 07:00
I&O
06/12/23 06/13/23 06/14/23
06:59 06:59 06:59
Intake Total 740 / 740 1680 / 1680
Balance 740 / 740 1680 / 1680
Review of Systems
-
All other systems: Reviewed and negative
Physical Exam
-
General: Well Developed, Well Nourished and No Apparent Distress
HEENT: Normocephalic and Atraumatic
Respiratory: Clear to Auscultation; Negative Wheezes, Rhonchi or Crackles
Cardiac: Regular Rhythm and S1/S2; Negative Murmur
GI: Soft, Nontender and Nondistended; Negative Normal Bowel Sounds (hyperactive)
Musculoskeletal: No Clubbing, No Cyanosis and No Edema
Neuro: Awake
--- NOTE | 2023-06-13 11:51 | CM ---
Patient seen at bedside and plan is home with no needs. CM will continue to follow for discharge, patient plans to drive self home.
[2023-06-13 12:20] LABS: Glucose - Point of Care 138 mg/dl (70-99)
[2023-06-13 12:25] LABS: Glucose - Point of Care 140 mg/dl (70-99)
[2023-06-13 14:27] LABS: Rheumatoid Agglutinin Less Than 10 IU (<10 IU)
--- NOTE | 2023-06-14 06:58 | W.DCSUMMARY ---
Discharge Summary
Discharge Data
Date of Admission: 06/08/23
Date of Discharge: 06/13/23
-
Pending Results: Yes
Additional Pending Results:
T. whipplei PCR in blood pending
CCP IgA/IgG antibodies
CAROL IgG screen
Endo mesial IgA antibody titer
serum chromogranin
24-hr urine for 5-HIAA-
Hospital Course
Primary care physician : Yessica De Souza
Principal Discharge diagnosis : Fever of unknown origin, abdominal pain with persistent diarrhea, hypokalemia, bilateral symmetric small joint stiffness
Chronic Discharge diagnosis : Type 2 diabetes mellitus, anxiety/depression, pulmonary nodules
Hospital Course : Patient is a 62-year-old female who had a history of diabetes mellitus and presented with fever, diarrhea, and abdominal pain. She states that this has been going on for the past 2 months prior to admission. She did have a
colonoscopy at [facility] earlier this month. Biopsies at that time showed evidence of microscopic colitis and she was started on budesonide. She also had been experiencing low-grade fevers around 99 to 100 �F. On the day of admission she
had a fever to 103 which prompted her to come to the emergency department. She reported 6-8 episodes of nonbloody diarrhea per day along with weight loss of 15 pounds over the past 6 months. Patient was admitted.
Problem #1: Fever of unknown origin/abdominal pain with diarrhea. Given the patient's diarrhea and abdominal pain stool studies were sent. C. difficile, norovirus, Cryptosporidium, Giardia, stool cultures, and blood cultures were all negative.
Patient also had a recent outpatient CAT scan which was unrevealing. Patient was seen in consultation by GI and infectious disease. She was initially started on IV Zosyn for possibility of infectious colitis however that was stopped when cultures
were negative. She was continued on budesonide. She was also given Imodium as needed. Fecal calprotectin was positive and workup for other sources of diarrhea including carcinoid syndrome are all pending at this time. She should follow-up with
GI whether she goes back to [place] or stays here for ongoing monitoring and treatment options. Tissue transglutaminase IgG and IgA were normal. Endo mesial IgA antibody titer is pending.
Problem #2: Hypokalemia. This was followed and repleted as necessary.
Problem #3: Bilateral symmetric small joint stiffness. There was some concern that this could be rheumatoid arthritis as patient does have a family history of rheumatoid arthritis. Microscopic colitis is associated with rheumatoid arthritis.
Rheumatoid factor was less than 10. CCP and CAROL are both pending at this time. It is recommended that she follow-up with rheumatology as an outpatient.
Problem #4: All other medical issues. These include Type 2 diabetes mellitus, anxiety/depression, pulmonary nodules. These medical issues were stable during her hospitalization. Medications were continued as able. In regards to her pulmonary
nodules, she should follow-up with pulmonary as an outpatient.
Patient is stable for discharge home at this time. If there are any questions regarding this dictation or her hospital stay, please not hesitate to call. Our office number is [phone].
Important imaging findings :
CT CHEST IMPRESSION:
There are multiple old small pulmonary nodules as described.
Lung RADS category 2-benign appearance or behavior.
Although comparison examination available for direct comparison, based on this CT scan, continued annual screening with be recommended.
Bronchial wall thickening present within both lower lobes, suggestive of bronchitis. Linear atelectasis within the medial and inferior aspect of both lower lobes, right greater than left, compatible with atelectasis.
Discharge Plan
-
Patient Disposition: Home (Routine Discharge)
Discharge Diagnosis/Procedures: Fever of unknown origin, persistent diarrhea due to microscopic colitis, hypokalemia, bilateral symmetric small joint stiffness and mild pain, type 2 diabetes mellitus, anxiety/depression, pulmonary nodules
Condition: Good
Diet: As tolerated and Diabetic, Carb Controlled
Activity: As tolerated
Driving Restrictions: As prior to admission
Activity Restrictions/Additional Instructions:
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
Referrals:
Yessica De Souza DO [Non-Admitting Privileges] - in less than 1 week
Prescriptions:
New
loperamide 2 mg Capsule
2 mg PO BID Qty: 0 0RF
Continued
dicyclomine 20 mg Tablet
20 mg PO TIDPRN PRN (Reason: spasms)
lorazepam 1 mg Tablet
1 mg PO HSPRN PRN (Reason: anxiety)
budesonide 3 mg Capsule,Delayed,Extend.Release
9 mg PO DAILY
Patient Comments:
patien tot take 3 capsules daily for 1 month starting 06/06/23, then decrease to two capsules after 1 month
escitalopram oxalate [Lexapro] 10 mg Tablet
10 mg PO QPM
acetaminophen [Tylenol] 325 mg Tablet
650 mg PO Q6HPRN PRN (Reason: mild pain)
Discharge Orders:
Discharge Patient (As Directed); Ordered 06/13/23
Ordered By: Angela Carlisle
Discharge Date and Time
Discharge Date/Time: 06/13/23 12:45
[2023-06-14 07:00] LABS: CCP Antibody IgG/IgA 45 Units (0-19)
[2023-06-14 07:13] LABS: ANA, IgG Reflex to HEp-2 None Detected (None Detected)
[2023-06-14 13:40] LABS: 24 Hour Urine Total Volume Random mL; Creatinine, Urine per Volume 37 mg/dL; Urine Collection Length Random hr
[2023-06-15 03:16] LABS: Endomysial IgA Antibody Titer <1:10 (<1:10)
--- NOTE | 2023-06-18 14:03 | W.PN.UPDATE ---
Update Note
Progress Note Update
Patient's CCP level was noted to be elevated at 45.
Patient updated on the phone, and was recommended to see rheumatology outpatient. She agreed to make an appointment.
== END 2023-06-13 12:45 | disposition home or self-care (01) | DRG 864 ==
LOC: 3 WEST ACU 18:34
PROVIDERS: Emergency Medicine; Internal Medicine Gastroenterology; Physician Assistant; Physician Assistant Medical; ADMITTING PHYSICIAN Internal Medicine; ATTENDING PHYSICIAN Internal Medicine; CONSULT PHYSICIAN Internal Medicine; EMERGENCY PHYSICIAN Emergency Medicine; OTHER PHYSICIAN Internal Medicine Hematology & Oncology; OTHER PHYSICIAN Internal Medicine Infectious Disease
DX: R50.9 Fever, unspecified (principal); E43 Unspecified severe protein-calorie malnutrition; J98.11 Atelectasis; Z68.1 Body mass index [BMI] 19.9 or less, adult; E34.0 Carcinoid syndrome; F32.A Depression, unspecified; F41.9 Anxiety disorder, unspecified; F17.210 Nicotine dependence, cigarettes, uncomplicated; E11.649 Type 2 diabetes mellitus with hypoglycemia without coma; R63.4 Abnormal weight loss; J44.9 Chronic obstructive pulmonary disease, unspecified; K52.9 Noninfective gastroenteritis and colitis, unspecified; K52.831 Collagenous colitis; E87.6 Hypokalemia; M06.9 Rheumatoid arthritis, unspecified; K52.839 Microscopic colitis, unspecified; Z11.52 Encounter for screening for COVID-19
CPT/HCPCS: 71260; 80048; 80053; 81003; 82784; 82962; 83036; 83497; 83516; 83605; 83690; 83735; 83993; 85025; 85027; 85652; 86038; 86140; 86200; 86231; 86316; 86430; 87040; 87045; 87046; 87324; 87328; 87329; 87427; 87449; 87502; 87798; 87811; 89055; 93005; 96361; 96365; 96366; 96367; 99284; Q9967

== ENCOUNTER 2023-09-05 11:29 | Emergency (ER) | payer OTHER, SELFPAY ==
[2023-09-05 11:37] VITALS: BP 140/98
[2023-09-05 12:10] LABS: % Basophils 0.4 % (0-2); % Eosinophils 0.6 % (0-6); % Immature Granulocytes 0.4 % (0-0.5); % Lymphocytes 18.4 % (20.5-51.1); % Monocytes 6.1 % (1.7-9.3); % Neutrophils 74.1 % (42.2-75.2); Absolute Basophils 0.1 10^3/uL (0-0.2); Absolute Eosinophils 0.1 10^3/uL (0-0.7); Absolute Immature Granulocytes 0.1 10^3/uL (0-0.05); Absolute Lymphocytes 2.2 10^3/uL (1.2-3.4); Absolute Monocytes 0.7 10^3/uL (0.1-0.6); Absolute Neutrophils 8.8 10^3/uL (1.4-6.5); Hematocrit 43.3 % (37.0-47.0); Mean Corp Hgb Conc. 34.6 g/dL (33.0-37.0); Mean Corpuscular Hgb 29.9 pg (27.0-31.0); Mean Corpuscular Volume 86.4 fL (81.0-99.0); Mean Platelet Volume 9.3 fL (7.4-10.4); Nucleated Red Blood Cells % 0 %; Platelet Count 239 10^3/uL (130-400); Red Blood Cell Count 5.01 10^6/uL (4.20-5.40); Red Cell Dist. Width 13.6 % (11.5-14.5); White Blood Cell Count 11.9 10^3/uL (4.8-10.8)
[2023-09-05 12:29] LABS: AST (SGOT) 23 U/L (14-36); Albumin 4.4 g/dl (3.5-5.0); Alkaline Phosphatase 70 U/L (38-126); Blood Urea Nitrogen 12 mg/dl (7-17); Carbon Dioxide 23 mmol/L (22-30); Chloride 106 mmol/L (98-107); Glucose 105 mg/dl (70-99); Total Protein 7.3 g/dl (6.3-8.2); eGFR > 60.00
[2023-09-05 12:41] LABS: Troponin I < 0.012 ng/ml
[2023-09-05 12:43] LABS: ALT (SGPT) 19 U/L (0-35); Calcium 10.2 mg/dl (8.4-10.2); Potassium 3.9 mmol/L (3.5-5.1); Sodium 137 mmol/L (135-145)
[2023-09-05 13:41] VITALS: BP 128/78
--- NOTE | 2023-09-05 13:44 | ED.GENMED ---
History of Present Illness
General
Chief Complaint: Blood Pressure Problem
Source: patient
Exam Limitations: none
Time Seen by Provider: 09/05/23 12:01
Nursing documentation reviewed up to this point in time: agreed with
Travel History
Have you had any contact with someone who has COVID-19?: No
Do you have any symptoms of coronavirus? Fever > 100 degrees, chills, cough, shortness of breath, sore throat, loss of taste or smell, muscle aches, or headache?: No
History of Present Illness
History of Present Illness:
62-year-old female with past medical history of COPD previous smoker, diabetes hyperlipidemia presenting to the emergency department today with concerns of elevated blood pressure found with a primary care doctor also had an elevated blood pressure
at her home blood pressures in the 160s over 110s. She was told to the ER by her primary care doctor due to the elevated blood pressure. She also claims she has had a very mild headache over the past few days described as posterior nonsevere at
this time very minimal. Denies numbness weakness nausea vomiting recent changes in meds
Past History
Past History
ED Past Medical History: COPD (Slight), NIDDM and Other (Migraines)
ED Past Surgical History: Other (Hemorrhoids)
Social History
Tobacco: Smoker
Alcohol: Occasional
Personal: Single
Living: alone
Review of Systems
Review of Systems
Allergies reviewed?: Yes
All Other Systems: ROS reviewed and negative except as documented in HPI and ROS
Phy Exam
Physical Exam
Physical Exam:
GENERAL: Alert , in no apparent distress
EYE: pupils equal and reactive
NECK: Supple, no significant adenopathy.
ENT: o/p clr, mmm.
CARDIAC: Regular rate and rhythm .
LUNGS: Clear breath sounds bilaterally, no acute respiratory distress, no wheezes/rales/rhonchi
ABDOMEN: Soft, without focal tenderness, no r/g, no cvat
NEUROLOGICAL: Alert and oriented, no focal neuro deficits 5-5 upper and lower extremity strength normal sensation were palpated bilaterally normal finger-nose and [id number] no pronator drift
SKIN: Warm and dry, skin intact.
MUSCULOSKELETAL: No edema, well perfused.
PSYCH: Normal and appropriate interaction.
Course
Orders/Labs/Results
Orders:
Orders
09/05/23 11:40
Electrocardiogram (*1) Urgent
Reason for Study: Hypertension, Benign
09/05/23 11:41
EKG- Treatment ONCE
09/05/23 11:51
Complete Blood Count/With Diff Urgent
Comprehensive Metabolic Panel Urgent
Troponin I Urgent
09/05/23 12:17
CT Head W/o Iv Contrast Urgent
Comment:
Reason For Exam: NARAYAN new
Abnormal Lab Results
09/05/23
11:51
WBC 11.9 H 10^3/uL
(4.8-10.8)
Abs Immat Gran (auto) 0.1 H 10^3/uL
(0-0.05)
Absolute Neuts (auto) 8.8 H 10^3/uL
(1.4-6.5)
Absolute Monos (auto) 0.7 H 10^3/uL
(0.1-0.6)
Lymphocytes % 18.4 L %
(20.5-51.1)
Glucose 105 H mg/dl
(70-99)
09/05/23 11:51
09/05/23 11:51
Vital Signs
Initial and Last Documented VS:
Initial Vital Signs
Temp Pulse Resp BP Pulse Ox
97.5 F 92 18 140/98 99
09/05/23 11:37 09/05/23 11:37 09/05/23 11:37 09/05/23 11:37 09/05/23 11:37
Last Documented Vital Signs
Temp Pulse Resp BP Pulse Ox
98.2 F 81 16 128/78 99
09/05/23 13:41 09/05/23 13:41 09/05/23 13:41 09/05/23 13:41 09/05/23 13:41
MDM/Problems Addressed
MDM/Problems Addressed:
62-year-old female presenting to the emergency department today with concerns of elevated blood pressure today in the 160s over 110s also had a mild posterior headache over the past few days. Does get headaches frequently. On arrival blood
pressure 140/98 other vital signs are normal. Normal neurologic evaluation blood pressure improved to 128/78 without specific treatments additional vital signs are normal labs without emergent findings other than a very slightly elevated white
count of 11.9 but patient is on chronic steroids which could explain this. She claims that her headache feels slightly different than usual concerning the CT scan was ordered. CT without emergent findings. Patient's blood pressure after
reassessment was normal 128/78 stable for discharge advised for outpatient follow-up return precautions given.
*Critical Care Note
Total Time (30-74mins, 75-104mins- exclusive of procedures): Not Applicable
ED Attending Note
-
Portions of this chart may have been created with voice recognition software.� Occasional wrong word or��sound alike� substitutions may have occurred due to the inherent limitations of voice recognition software.
Discharge Plan
Departure
Patient Disposition: Home (Routine Discharge)
Date of Disposition: 09/05/23
Time of Disposition: 15:40
Patient with high blood pressure during this ER visit?: No
Condition: Good
Covid-19: Not Applicable
Discharge Problem:
Elevated blood pressure reading
Instructions: High Blood Pressure (DC)
Prescriptions:
No Action
dicyclomine 20 mg Tablet
20 mg PO TIDPRN PRN (Reason: spasms)
lorazepam 1 mg Tablet
1 mg PO HSPRN PRN (Reason: anxiety)
budesonide 3 mg Capsule,Delayed,Extend.Release
9 mg PO DAILY
Patient Comments:
patien tot take 3 capsules daily for 1 month starting 06/06/23, then decrease to two capsules after 1 month
escitalopram oxalate [Lexapro] 10 mg Tablet
10 mg PO QPM
acetaminophen [Tylenol] 325 mg Tablet
650 mg PO Q6HPRN PRN (Reason: mild pain)
loperamide 2 mg Capsule
2 mg PO BID Qty: 0 0RF
Referrals:
Yessica De Souza DO [Family Provider] -
Activity Restrictions/Additional Instructions:
You came to the emergency department today with concerns of elevated blood pressure. Here you had a reassuring assessment. Please follow up close with the primary care doctor. Return to the emergency department for any worsening, new or
concerning symptoms.
Interventions
Interventions:
*Risk Screen - Suicide Last Done: 09/05/23 11:40
*General Assessment Last Done: 09/05/23 11:40
*Neglect/Abuse Screening Last Done: 09/05/23 11:40
*ED COVID-19 Vaccine History Last Done: 09/05/23 12:20
ED- Cardiac Assessment Last Done: 09/05/23 13:20
ED- Neurological Assessment Last Done: 09/05/23 13:20
ED- Pulmonary Assessment Last Done: 09/05/23 13:20
Discharge Date and Time
Print Language: SUDANESE
== END 2023-09-05 15:50 | disposition home or self-care (01) ==
LOC: EMR 11:29
PROVIDERS: Emergency Medicine; EMERGENCY PHYSICIAN Emergency Medicine; FAMILY PHYSICIAN Family Medicine
DX: R03.0 Elevated blood-pressure reading, without diagnosis of hypertension (principal); E11.9 Type 2 diabetes mellitus without complications; J44.9 Chronic obstructive pulmonary disease, unspecified; F17.200 Nicotine dependence, unspecified, uncomplicated
CPT/HCPCS: 99285; 70450; 80053; 84484; 85025; 93005